=== PATIENT | male | born 1985 | race Caucasian/White ===

== ENCOUNTER 2017-07-29 12:12 | Emergency (ER) | payer OTHER ==
[~2017-07-29] VITALS: Ht 167.6 cm; Wt 79.4 kg
[2017-07-29] MEDS ORDERED: Augmentin 875-1 EACH PO (13:30)
[2017-07-29] MEDS ORDERED: Ultram50 MG PO (13:30)
== END 2017-07-29 13:56 | disposition home or self-care (01) ==
LOC: ER 12:12
DX: S02.2XXA Fracture of nasal bones, initial encounter for closed fracture (principal); S01.21XA Laceration without foreign body of nose, initial encounter; S00.83XA Contusion of other part of head, initial encounter; S05.11XA Contusion of eyeball and orbital tissues, right eye, initial encounter; K04.7 Periapical abscess without sinus; Z23 Encounter for immunization; Z79.2 Long term (current) use of antibiotics; Y04.2XXA Assault by strike against or bumped into by another person, initial encounter
CPT/HCPCS: 12011; 70486; 90471; 90714; 99284

== ENCOUNTER 2022-02-25 11:08 | Emergency (ER) | payer SELFPAY ==
[~2022-02-25] VITALS: Ht 175.3 cm; Wt 74.8 kg
[~2022-02-25 11:08] MED LIST: Augmentin 875-1 EACH PO; Ultram50 MG PO
[2022-02-25] MEDS ORDERED: OXYC5 PO (14:42)
== END 2022-02-25 14:58 | disposition home or self-care (01) ==
LOC: ER 11:08
DX: S22.22XA Fracture of body of sternum, initial encounter for closed fracture (principal); S42.031A Displaced fracture of lateral end of right clavicle, initial encounter for closed fracture; F17.200 Nicotine dependence, unspecified, uncomplicated; Y93.39 Activity, other involving climbing, rappelling and jumping off
CPT/HCPCS: 71120; 73000; 73030; 99283-25; A9270

== ENCOUNTER 2022-12-22 09:25 | Emergency (ER) | payer OTHER ==
[~2022-12-22] VITALS: Ht 175.3 cm; Wt 78.0 kg
[~2022-12-22 09:25] MED LIST changes: +OXYC5 PO
[2022-12-22 11:04] LABS: U Cannabinoids Screen DETECTED
[2022-12-22 11:05] LABS: U Amphetamine Screen Not Detected; U Barbituate Screen Not Detected; U Benzodiazapine Screen DETECTED; U Buprenorphine Screen Not Detected; U Cocaine Screen Not Detected; U Methadone Screen Not Detected; U Methamphetamine Screen Not Detected; U Opiates Screen DETECTED; U Oxycodone Screen Not Detected; U Phencyclidine Screen Not Detected; U Propoxyphene Screen Not Detected
[2022-12-22 11:23] LABS: BASOPHILS ABSOLUTE AUTO 0.01 K/mm3 (0.00-0.23); BASOPHILS PERCENT AUTO 0 % (0-2); EOSINOPHILS ABSOLUTE AUTO 0.02 K/mm3 (0.00-0.68); EOSINOPHILS PERCENT AUTO 0 % (0-6); Hematocrit 38.5 % (37.0-53.0); Hemoglobin 14.3 g/dL (13.5-17.5); IMMATURE GRAN ABSOLUTE AUTO 0.01 K/mm3 (0.00-0.10); IMMATURE GRAN PERCENT AUTO 0 % (0-1); LYMPHOCYTES PERCENT AUTO 29 % (21-46); MONOCYTES ABSOLUTE AUTO 0.66 K/mm3 (0.16-1.47); MONOCYTES PERCENT AUTO 12 % (4-13); Mean Corpuscular HGB 35.2 pg (26.0-34.0); Mean Corpuscular HGB Conc 37.1 g/dL (31.5-36.5); Mean Corpuscular Volume 95 fL (80-100); Mean Platelet Volume 10.6 fL (9.1-12.4); NEUTROPHILS ABSOLUTE AUTO 3.16 K/mm3 (1.96-9.15); NEUTROPHILS PERCENT AUTO 58 % (41-73); Platelet Count 236 K/mm3 (150-400); RDW Coefficient Variation 10.4 % (11.7-14.2); RDW Standard Deviation 35.8 fL (35.1-46.3); Red Blood Cell Count 4.06 M/mm3 (4.30-5.90); White Blood Cell Count 5.46 K/mm3 (4.00-11.30)
[2022-12-22 11:57] LABS: Albumin, Blood 3.5 g/dL (3.4-5.0); Bilirubin, Total 0.5 mg/dL (0.1-1.0); Bun/Creatinine Ratio 14.4 (12.0-20.0); Creatinine, Blood 0.62 mg/dL (0.60-1.20); Globulin, Blood 3.5 g/dL (2.2-4.0)
[2022-12-22] MEDS ORDERED: HYDPAM50 PO (13:28)
[2022-12-22 13:37] VITALS: BP 114/65
== END 2022-12-22 13:57 | disposition home or self-care (01) ==
LOC: ER 09:25
PROVIDERS: Physician Assistant
DX: R41.82 Altered mental status, unspecified (principal); G47.00 Insomnia, unspecified; G40.909 Epilepsy, unspecified, not intractable, without status epilepticus; F17.200 Nicotine dependence, unspecified, uncomplicated
CPT/HCPCS: 70450; 80053; 83735; 85025; 99285-25; G0480

== ENCOUNTER 2023-01-03 08:11 | Inpatient (IN) | payer BC, OTHER ==
[~2023-01-03] VITALS: Ht 175.3 cm; Wt 77.2 kg
[2023-01-03] VITALS (23 sets, daily range): BP systolic 69–153; BP diastolic 28–103
[~2023-01-03 08:11] MED LIST changes: +HYDPAM50 PO
[2023-01-03 15:03] LABS: BASOPHILS ABSOLUTE AUTO 0.03 K/mm3 (0.00-0.23); BASOPHILS PERCENT AUTO 0 % (0-2); EOSINOPHILS ABSOLUTE AUTO 0.01 K/mm3 (0.00-0.68); EOSINOPHILS PERCENT AUTO 0 % (0-6); Hematocrit 42.9 % (37.0-53.0); Hemoglobin 16.1 g/dL (13.5-17.5); IMMATURE GRAN ABSOLUTE AUTO 0.11 K/mm3 (0.00-0.10); IMMATURE GRAN PERCENT AUTO 1 % (0-1); LYMPHOCYTES ABSOLUTE AUTO 0.97 K/mm3 (0.84-5.20); LYMPHOCYTES PERCENT AUTO 4 % (21-46); MONOCYTES ABSOLUTE AUTO 1.72 K/mm3 (0.16-1.47); MONOCYTES PERCENT AUTO 8 % (4-13); Mean Corpuscular HGB Conc 37.5 g/dL (31.5-36.5); Mean Corpuscular Volume 93 fL (80-100); Mean Platelet Volume 10.5 fL (9.1-12.4); NEUTROPHILS PERCENT AUTO 88 % (41-73); Platelet Count 258 K/mm3 (150-400); RDW Coefficient Variation 10.6 % (11.7-14.2); RDW Standard Deviation 35.8 fL (35.1-46.3); White Blood Cell Count 22.64 K/mm3 (4.00-11.30)
[2023-01-03] MEDS ORDERED: ACET500 PO (15:18)
[2023-01-03] MEDS ORDERED: HYDPAM50 PO (15:29)
[2023-01-03 15:30] LABS: Prothrombin Time Results 10.5 Sec (9.7-11.5)
[2023-01-03 15:59] LABS: Alanine Aminotransfer (ALT/SGP 899 U/L (12-78); Albumin, Blood 2.8 g/dL (3.4-5.0); Albumin/Globulin Ratio 0.8 (0.8-1.8); Alk Phos 69 U/L (50-136); Anion Gap 11 mmol/L (6-16); Bilirubin, Total 0.5 mg/dL (0.1-1.0); Blood Urea Nitrogen 55 mg/dL (8-24); Bun/Creatinine Ratio 11.7 (12.0-20.0); CO2, Blood 19 mmol/L (21-32); Chloride, Blood 95 mmol/L (98-108); Creatinine, Blood 4.71 mg/dL (0.60-1.20); Globulin, Blood 3.5 g/dL (2.2-4.0); Glomerular Filtration Rate 15 (60-); Glucose, Blood 131 mg/dL (70-99); Potassium, Blood 6.7 mmol/L (3.5-5.5); Sodium, Blood 125 mmol/L (136-145); Total Protein, Blood 6.3 g/dL (6.4-8.2)
--- NOTE | 2023-01-03 16:07 | NUR ---
L CALF MEASURED & SPOT MARKED. 38cm.
[2023-01-03 17:16] LABS: Aspartate Aminotrans (AST/SGOT 3080 U/L (12-37)
--- NOTE | 2023-01-03 20:33 | NUR ---
SHIFT SUMMARY PAIN BETTER CONTROLLED THAN INITIALLY POST OP. L FOOT HAS SLIGHTLY MORE SWELLING. PLACED ON PILLOW. R LEG HAS SOME SS DRNG THRU GAUZE. STILL CAN WIGGLE ONLY R GREAT TOE. CONT's TO NOT FEEL BLE. HANDS UNCHANGED IN COLOR. TELE IN PLACE NSR. IVF INFUSING TO POWERGLIDE RUE. TAKING IN PO FLUIDS & ONLY FEW BITES OF FOOD.
[2023-01-04] VITALS (63 sets, daily range): BP systolic 131–148; BP diastolic 82–101
[2023-01-04 01:35] LABS: BASOPHILS ABSOLUTE AUTO 0.03 K/mm3 (0.00-0.23); BASOPHILS PERCENT AUTO 0 % (0-2); EOSINOPHILS ABSOLUTE AUTO 0.01 K/mm3 (0.00-0.68); EOSINOPHILS PERCENT AUTO 0 % (0-6); Hematocrit 39.2 % (37.0-53.0); Hemoglobin 14.4 g/dL (13.5-17.5); IMMATURE GRAN PERCENT AUTO 1 % (0-1); LYMPHOCYTES ABSOLUTE AUTO 0.79 K/mm3 (0.84-5.20); LYMPHOCYTES PERCENT AUTO 4 % (21-46); MONOCYTES ABSOLUTE AUTO 2.65 K/mm3 (0.16-1.47); MONOCYTES PERCENT AUTO 13 % (4-13); Mean Corpuscular HGB Conc 36.7 g/dL (31.5-36.5); Mean Corpuscular Volume 95 fL (80-100); Mean Platelet Volume 10.8 fL (9.1-12.4); NEUTROPHILS ABSOLUTE AUTO 16.55 K/mm3 (1.96-9.15); NEUTROPHILS PERCENT AUTO 82 % (41-73); Platelet Count 227 K/mm3 (150-400); RDW Coefficient Variation 10.6 % (11.7-14.2); RDW Standard Deviation 37.2 fL (35.1-46.3); Red Blood Cell Count 4.11 M/mm3 (4.30-5.90); White Blood Cell Count 20.13 K/mm3 (4.00-11.30)
--- NOTE | 2023-01-04 03:05 | NUR ---
I CALLED DR POOL AND DISCUSSED LAB RESULTS INCLUSIVE OF NA,K, CREATININE/GFR,AST.ALT,CK,CRP,AND GENERAL ASSESSMENT OF PT. ORDERED IV INSULIN/D50 AND FOLLOW UP LABS @.
[2023-01-04 03:28] LABS: Alanine Aminotransfer (ALT/SGP 708 U/L (12-78); Albumin, Blood 2.5 g/dL (3.4-5.0); Albumin/Globulin Ratio 0.7 (0.8-1.8); Alk Phos 63 U/L (50-136); Anion Gap 11 mmol/L (6-16); Aspartate Aminotrans (AST/SGOT 2467 U/L (12-37); Bilirubin, Total 0.5 mg/dL (0.1-1.0); Blood Urea Nitrogen 64 mg/dL (8-24); CO2, Blood 21 mmol/L (21-32); Calcium, Blood 7.1 mg/dL (8.5-10.1); Chloride, Blood 93 mmol/L (98-108); Creatinine, Blood 5.81 mg/dL (0.60-1.20); Globulin, Blood 3.4 g/dL (2.2-4.0); Glomerular Filtration Rate 12 (60-); Glucose, Blood 149 mg/dL (70-99); Potassium, Blood 6.3 mmol/L (3.5-5.5); Sodium, Blood 125 mmol/L (136-145); Total Protein, Blood 5.9 g/dL (6.4-8.2)
--- NOTE | 2023-01-04 03:45 | NUR ---
RECEIVED POTASSIUM RESULTS AT 0305.OTHER LABS STILL PENDING. ONCE AVAILABLE, I CALLED DR WILKS WITH CURRENT ASESSMENT OF PT AND REVIEWED ALL RECENT LABS. DOCTOR ORDERED ANOTHER 10 UNIT DOSE OF REG INSULIN IV AND TO GIVE 2 AMPS 100 ML D50.DOSE WAS CONFIRMED PER MYSELF AND [facility]. ALSO INCREASED IV RATE TO 250 ML/HR.
--- NOTE | 2023-01-04 04:14 | NUR ---
DR ORDERED NEPHROLOGY CX WHICH I PLACED ON DR DMOINGUEZ CARD.
--- NOTE | 2023-01-04 05:19 | NUR ---
PTS LLE REMAINS 37-38 CM PER MEASURE.RLE APPEARS OCAMPO AT GUAZE DRESSING SITE.RLE CONTINUES TO DRAIN SERO-SANG COURTNEY PT REPORTS CAN FEEL TOUCH L FOOT NOW ALTHOUGH STILL TINGLING.PT REPORTS R FOOT NOW HAS SOME RETURN OF SENSATION NOTED WHEN PULSE CHECK. PT ABLE TO SLOWLY WIGGLE TOES ON BOTH FEET WTH R BEING SLOWER.BOTH FEET WERE REPORTED NUMB ON INITIAL ASSESSMENT PER DAY RN THIS WAS SAME ARRIVAL POSTOP.PT IS ABLE TO CAREFULLY MOVE BOTH LEGS. BILAT POST TIBIAL PULSES REMAIN STRONG AND UNCHANGED WHILE BILAT PEDAL REMAIN WEAK WHICH IS ALSO REPORTED SAME BASELINE.PTS HEART RATE HAS BEEN SINUS ALESSIO 40'-50'S. CALL OUT TO DR GRIFFITH REGARDING INCREASE IN FULLNESS FASCIOTOMY SITE.DR MONTALVO CALLED AND GAVE ORDERS FOR BLADDER SCAN AND RENAL PANEL.
--- NOTE | 2023-01-04 05:45 | NUR ---
PHONE CALL TO DR GRIFFITH ADVISING OF ASSESSMENT/FULLNESS INCREASING TO RLE SEE ORDER RECEIVED.BLADDER SCAN COMPLETED 32 ML.
--- NOTE | 2023-01-04 05:48 | NUR ---
CALL FROM AIRCRAFT LOG CLERK-PT REPORTED SOB AND WAS INITIALLY UNABLE TO OBTAIN SATS. RAPID RESPONSE CALLED PER ORTHOTIC/PROSTHETIC PRACTITIONER. I WAS ABLE TO OBTAIN A 98% SAT WITH CHANGE OF HOSPITAL EQUIPMENT AND RAPID REPONSE WAS ARRIVING PT CHANGED MIND STATING HE WAS UNSURE, BUT THINKS IT WAS NAUSEA,NOT REALLY SOB.NO CHANGE OF ORDERS PER TELEGRAPH REPEATER INSTALLER.DR WILKS HERE FOR TELEGRAPH REPEATER INSTALLER WITH NO CHANGE OF ORDERS. NURSING SUPER AT BEDSIDE AWARE OF STATUS.
[2023-01-04 06:27] LABS: Albumin, Blood 2.4 g/dL (3.4-5.0); Anion Gap 11 mmol/L (6-16); Blood Urea Nitrogen 65 mg/dL (8-24); Bun/Creatinine Ratio 10.7 (12.0-20.0); CO2, Blood 20 mmol/L (21-32); Calcium, Blood 6.8 mg/dL (8.5-10.1); Chloride, Blood 94 mmol/L (98-108); Creatinine, Blood 6.09 mg/dL (0.60-1.20); Glomerular Filtration Rate 11 (60-); Glucose, Blood 214 mg/dL (70-99); Phosphorus, Blood 7.8 mg/dL (2.5-4.9); Potassium, Blood 5.5 mmol/L (3.5-5.5); Sodium, Blood 125 mmol/L (136-145)
--- NOTE | 2023-01-04 07:23 | NUR ---
CALLED RENAL PANEL RESULTS TO DR MONTALVO RECEIVED ORDERS FOR CHANGE OF IV AND LABS AT NOON.
[2023-01-04 09:21] LABS: BASOPHILS ABSOLUTE AUTO 0.01 K/mm3 (0.00-0.23); BASOPHILS PERCENT AUTO 0 % (0-2); EOSINOPHILS PERCENT AUTO 0 % (0-6); Hematocrit 36.4 % (37.0-53.0); Hemoglobin 13.6 g/dL (13.5-17.5); IMMATURE GRAN ABSOLUTE AUTO 0.11 K/mm3 (0.00-0.10); IMMATURE GRAN PERCENT AUTO 1 % (0-1); LYMPHOCYTES ABSOLUTE AUTO 0.95 K/mm3 (0.84-5.20); LYMPHOCYTES PERCENT AUTO 4 % (21-46); MONOCYTES PERCENT AUTO 17 % (4-13); Mean Corpuscular HGB 35.1 pg (26.0-34.0); Mean Corpuscular HGB Conc 37.4 g/dL (31.5-36.5); Mean Corpuscular Volume 94 fL (80-100); Mean Platelet Volume 10.5 fL (9.1-12.4); NEUTROPHILS ABSOLUTE AUTO 16.92 K/mm3 (1.96-9.15); NEUTROPHILS PERCENT AUTO 78 % (41-73); Platelet Count 219 K/mm3 (150-400); RDW Coefficient Variation 10.6 % (11.7-14.2); RDW Standard Deviation 36.2 fL (35.1-46.3); Red Blood Cell Count 3.87 M/mm3 (4.30-5.90); White Blood Cell Count 21.59 K/mm3 (4.00-11.30)
--- NOTE | 2023-01-04 09:36 | NUR ---
SUMMARY DRESSING SPLIT DOWN MIDDLE AND SURGICAL AREA LOOKS CLEAN WITH SERO-SANG DRNG. SKIN PINK AND WARM WITH NO DISCOLORATION NOTED TO SURROUNDING TISSUE.
[2023-01-04 09:57] LABS: BASOPHILS PERCENT MAN 0 % (0-2); EOSINOPHILS PERCENT MAN 0 % (0-6); LYMPHOCYTES ABSOLUTE MAN 0.86 K/mm3 (0.84-5.20); LYMPHOCYTES PERCENT MAN 4 % (21-46); MONOCYTES ABSOLUTE MAN 2.37 K/mm3 (0.16-1.47); MONOCYTES PERCENT MAN 11 % (4-13); NEUTROPHILS ABSOLUTE MAN 18.35 K/mm3 (1.96-9.15); SEG NEUTROPHILS PERCENT MAN 85 % (41-73); TOTAL CELLS COUNTED 100
[2023-01-04 10:20] LABS: Alanine Aminotransfer (ALT/SGP 563 U/L (12-78); Albumin, Blood 2.5 g/dL (3.4-5.0); Albumin/Globulin Ratio 0.8 (0.8-1.8); Alk Phos 62 U/L (50-136); Anion Gap 11 mmol/L (6-16); Bilirubin, Total 0.5 mg/dL (0.1-1.0); Blood Urea Nitrogen 69 mg/dL (8-24); Bun/Creatinine Ratio 10.6 (12.0-20.0); CO2, Blood 20 mmol/L (21-32); Calcium, Blood 7.1 mg/dL (8.5-10.1); Chloride, Blood 94 mmol/L (98-108); Creatinine, Blood 6.48 mg/dL (0.60-1.20); Globulin, Blood 3.3 g/dL (2.2-4.0); Glomerular Filtration Rate 10 (60-); Glucose, Blood 131 mg/dL (70-99); Sodium, Blood 125 mmol/L (136-145); Total Protein, Blood 5.8 g/dL (6.4-8.2)
[2023-01-04 10:24] LABS: Aspartate Aminotrans (AST/SGOT 1925 U/L (12-37); Potassium, Blood 6.3 mmol/L (3.5-5.5)
--- NOTE | 2023-01-04 10:25 | NUR ---
PT TRANSFERED TO ICU 8 FROM SURGICAL FLOOR AT 1008. COMING TO ICU PCU STATUS. PT IS A/O X4. DIFFICULT TO GET ANSWERS FROM PT. C/O OF NAUSEA AND HAS PAIN IN R LEG. SURGICAL FLOOR RN AT BEDSIDE WITH TRANSFER STATES LEGS AND FEET APPEAR THE SAME POST OP. L FOOT IS DUSKY AND L CALF IS SWOLLEN. L FOOT UNABLE TO PALPATE DORSALIS PULSE BUT ABLE TO GET DOPPLER. POSTERIOR TIBIAL PULSE ON L IS PALPABLE. CAP REFILL 3 SECONDS. R FOOT CAP REFILL LESS THAN 3 SEC, PALPABLE DORSALIS AND POSTERIOR TIBIAL PULSES, AND FOOT IS PINK AND WARM TO TOUCH. SPOKE WITH DR. RAMIREZ ABOUT GETTING ARTERIAL DUPLEX BILAT. INJECTION MOLDING MACHINE OFFBEARER HAD JUST REPLACED DRESSING TO R CALF AND STATES THEY HAVE NOT BEEN MEASURING THAT CALF D/T DRESSING ON SITE WOULD MAKE INCONSISTANT MEASURMENTS. L CALF WAS REPORTED TO BE BETWEEN 37-38 CM. L CALF WAS MEASURED AT 38 CM BY THIS RN.
--- NOTE | 2023-01-04 11:34 | NUR ---
REPORT CALLED AND PT TRANSFERRED TO ICU, PCU STATUS AT APPROXIMATELY 1100. PT ALERT AND ORIENTED AT TIME OF TRANSFER. EXAMINED BLE AT BEDSIDE WITH TERRANCE PACHECO.
--- NOTE | 2023-01-04 12:02 | NUR ---
PT DECLINES SAEZ AT THIS TIME.
--- NOTE | 2023-01-04 13:13 | NUR ---
DR. BOLAND ROUNDED ON PT TOOK DOWN DRESSING TO RIGHT LOWER LEG. HE IS CONCERNED THAT MUSCLE IS VERY FIRM AND DISTENDED ON BOTH SIDES OF CALF. PICTURES TAKEN. LEG RE-DRESSED WITH 4X4s, ABD PADS AND KERLEX WRAP. HE ALSO ASSESSED THE LEFT LEG AND WAS VERY CONCERNED ABOUT THE COLDNESS. DISCUSSED THE ARTERIAL DUPLEX DONE THIS MORNING. HE WILL CALL DR Rushing FOR AN EMERGENT CONSULT.
--- NOTE | 2023-01-04 13:45 | NUR ---
DR. BOLAND AND DR. GRIFFITH AT BEDSIDE TO EVAL R CALF. DRESSING TAKEN DOWN AGAIN AND EVAL'D BY DR. GRIFFITH. DRESSING WAS THEN REPLACED BY SURGEONS. MODERATE AMT OF SEROSANG FLUID ON PREVIOUS DRESSING. DR. GRIFFITH STATES LLE LOOKS THE SAME IF NOT BETTER THAN BEFORE. PLAN IS TO STILL HAVE DR. HERNANDEZ REVIEW THE CASE AND LE'S. MEASURMENTS AND PULSES THE SAME PREVIOUSLY DOCUMENTED BY THIS RN.
[2023-01-04 14:00] LABS: Albumin, Blood 2.2 g/dL (3.4-5.0); Anion Gap 9 mmol/L (6-16); Blood Urea Nitrogen 63 mg/dL (8-24); Bun/Creatinine Ratio 9.8 (12.0-20.0); CO2, Blood 23 mmol/L (21-32); Calcium, Blood 6.7 mg/dL (8.5-10.1); Chloride, Blood 94 mmol/L (98-108); Creatinine, Blood 6.43 mg/dL (0.60-1.20); Glomerular Filtration Rate 11 (60-); Glucose, Blood 110 mg/dL (70-99); Phosphorus, Blood 8.2 mg/dL (2.5-4.9); Potassium, Blood 5.5 mmol/L (3.5-5.5); Sodium, Blood 126 mmol/L (136-145)
--- NOTE | 2023-01-04 17:51 | NUR ---
SUMMARY PT RESTING IN BED. HAS BETTER PAIN CONTROL AFTER DILAUDID SAND BUFFER WAS STARTED. R CALF DRESSING CLEAN AND INTACT WHERE FASCIOTOMY WAS DONE. DR. GRIFFITH REDRESSED IT THIS AFTERNOON AFTER ASSESSING IT. NEW PICTURES TAKEN WHILE DRESSING WAS OFF. PT WAS IN EXTREME AMOUNT OF PAIN WITH DRESSING CHANGE. DR. HERNANDEZ WAS CONSULTED AND SAID HE WOULD SEE THE PT IN THE AM. DR. CAPPS WAS CONSULTED THIS EVENING FOR TRIALYSIS CATH PLACEMENT. DR. MONTALVO PLANS FOR DIALYSIS TONIGHT. PT IS NOT MAKING URINE, BLADDER SCAN SHOWS 18ML. L CALF CIRCUMFERENCE REMAINS SAME AT 38 CM. L FOOT IS STILL DUSKY WITH DOPPLER PULSE FOR DORSALIS. PALPABLE POSTERIOR TIBIAL PULSE. CAP REFILL FOR L FOOT 3 SEC. R FOOT IS WARM WITH PALPABLE PULSES.
--- NOTE | 2023-01-04 19:05 | NUR ---
Met with patient to have theraputic conversation and to assess pain and symptoms. Pt having some ringing in his ears no headache. States his breathing is ok. He is having some gerd and hiccups no nasea. HI leg are painfull expecially the left ankle feels strong preassure. Review of potential adjuct medication with nursing. She will ask physician once they have afirm plan of care. Will continue to follow. Asked patient if he has support from friends and family he stated ye she was texting them. Did not press him for more information. He is high risk for seizures. If he has surgery may benefit from some time on the ventlator due to the severe pain and intense recovery. We discussed his fears he stated he has had many broken bones and injuries. Will follow for prison plan of care.
--- NOTE | 2023-01-04 21:17 | NUR ---
ASSUMPTION OF CARE/ASSESSMENT: ASSUMED CARE OF PT AT 1900. PT IN BED RECIEVING URGENT DIALYSIS AT THIS TIME. PT A&O X 4, COOPERATIVE WITH CARE BUT QUIET AND APPEARS TIRED. PT CURRENTLY ON RA WITH CLEAR LUNG SOUNDS THROUGHOUT; SPO2 98<, RR 14-16, AND PT DENIES SOB AT THIS TIME. SB ON MONITOR WITH HR 47-50'S, SBP 140'S AND PT DENIES CHEST PAIN/PRESSURE AT THIS TIME. HYPOACTIVE BOWEL SOUNDS IN ALL QUADRANTS; ABD SOFT, NON-TENDER. PT OLIGURIA AND REQUIRING DIALYSIS. PT STATUS POST-OP DAY ONE FROM R. CALF FASCIOTOMY; DRESSING IN PLACE IS SATURATED AND WILL NEED TO BE CHANGED ONCE DIALYSIS IS COMPLETE. R. LEG PAIN IS OFF THE SCALE PER PT REPORT; PT ABLE TO WIGGLE TOES ON R. FOOT BUT CANNOT FEEL TOUCH TO R. FOOT, TOUCH FELT ABOVE KNEE ON R. LEG. R. FOOT PULSE HEARD WITH DOPPLER AND CAP REFILL 3 SECONDS<; PINK IN COLOR AND WARM. LLE SWOLLEN AND VERY PAINFUL TO TOUCH; COLOR IS DUSKY AND COOL, CAP REFIL 3 SECONDS<. PT ABLE TO WIGGLE TOES ON L. FOOT AND CAN FEEL TOUCH THROUGHOUT ENTIRE LEG; CALF MEASUREMENT AT 37 CM. PT HAS DILAUDID IN HOME CAREGIVER FOR PAIN MANAGEMENT. BUE PULSE PALPABLE AND STRONG; ALL OTHER SKIN IS PINK AND WARM. PT HAD RIJ TRIALYSIS CATHETER AND DEREJE PG. PT RECIEVING SODIUM BICARB @ 100 MLS/HR. BED LOWERED, CALL LIGHT IN REACH, WILL CONTINUE TO ASSESS FOR FURTHER NEEDS.
[2023-01-05] VITALS (63 sets, daily range): BP systolic 116–158; BP diastolic 72–98
--- NOTE | 2023-01-05 00:03 | NUR ---
REASSESSMENT: PREVIOUS ASSESSMENT OF BLE REMAINS UNCHANGED. L. CALF CONTINUES TO MEASURE AT 37 CM. PT STATES THAT PAIN IS SLIGHTLY BETTER IN L. LEG. DRESSING CHANGE COMPLETED TO R. CALF: WOUND CLEANSED WITH STERILE WATER AND WOUND CLEANSER AND BANDAGED WITH STERILE 4X4 GUAZE THAT HAS BEEN SATURATED WITH STERILE WATER AND REINFORCED WITH ABD PADS AND WRAPED WITH KERLEX. PT MEDICATED WITH ATIVAN PER EMAR PRIOR TO DRESSING CHANGE. PT TOLERATED WELL. BED LOWERED, CALL LIGHT IN REACH.
--- NOTE | 2023-01-05 03:56 | NUR ---
REASSESSMENT: BLE ASSESSMENT REMAINS UNCHANGED; L. CALF MEASURING AT 36.5 CM. PT STATES THAT PAIN IN L. LEG HAS IMPROVED SLIGHTLY SINCE LAST ASSESSMENT. DRESSING IS SATURATED AGAIN, WILL PLAN TO CHANGE DRESSING AGAIN. TEMPERATURE COMING DOWN TO 98.8. BED LOWERED, CALL LIGHT IN REACH.
[2023-01-05 04:14] LABS: Hemoglobin 11.2 g/dL (13.5-17.5)
[2023-01-05 04:15] LABS: Anion Gap 9 mmol/L (6-16); Blood Urea Nitrogen 46 mg/dL (8-24); Bun/Creatinine Ratio 8.3 (12.0-20.0); CO2, Blood 28 mmol/L (21-32); Calcium, Blood 6.7 mg/dL (8.5-10.1); Chloride, Blood 93 mmol/L (98-108); Creatinine, Blood 5.56 mg/dL (0.60-1.20); Glomerular Filtration Rate 13 (60-); Glucose, Blood 103 mg/dL (70-99); Potassium, Blood 4.1 mmol/L (3.5-5.5); Sodium, Blood 130 mmol/L (136-145)
--- NOTE | 2023-01-05 06:33 | NUR ---
SHIFT SUMMARY: NO ACUTE CHANGES OVERNIGHT; VSS THROUGHOUT THE SHIFT. R. CALF DRESSING CHANGES TWICE THIS SHIFT. SENSATION SLOWLY RETURNING IN R. CALF/FOOT, AND SKIN REMAINS PINK AND WARM TO TOUCG. L. CALF MEASURING AT 36.5 CM AND PAIN IS SLOWLY IMPROVING; TEMPERATURE IMPROVING. PT ABLE TO MOVE TOES BILATERALLY. DILAUDID SURVEILLANCE CAMERA TECHNICIAN PER EMAR; PT STATES THAT IS IT HELPING WITH PAIN MANAGEMENT. PT DECLINES TURNS AND STATES THAT LAYING FLAT IS BEST AND HIS IS WORRIED ABOUT PUTTING MORE PRESSURE ON LEGS WHEN TURNED. PT NPO SINCE MIDNIGHT FOR POSSIBLE PROCEDURE. PT SLEPT ON AND OFF THROUGHOUT THE NIGHT. BED LOWERED, CALL LIGHT IN REACH.
--- NOTE | 2023-01-05 09:46 | NUR ---
PT IN BED. A/O X4. PAIN WAS NOT WELL CONTROLLED WITH TUBE COVERER. HAS 10/10 PAIN IN R LEG THEN ALSO HAS GENERALIZED ACHING T/O BODY. PT STATES HE CAN FEEL EVERY SITE ON HIS BODY THAT HAS BEEN POKED WITH A NEEDLE SINCE HE HAS BEEN HERE. PT STATES THIS IS NEW SINCE YESTERDAY. CALLED DR. BOJORQUEZ WHO INCREASED TUBE COVERER DOSE. PT IS ABLE TO FEEL TOUCHING OF HIS TOES. L CALF MEASURES 39 CM, MEASURED AT SAME MARKINGS YESTERDAY. L ANKLE AND FOOT APPEAR MORE SWOLLEN THAN YESTERDAY. L DORSALIS PULSE FOUND WITH DOPPLER UNCHANGED FROM YESTERDAY. L FOOT STILL APPEARS DUSKY BUT CAP REFILL AT 3 SECONDS. RLE HAS DRESSING IN PLACE WHERE FASCIOTOMY WAS DONE. R FOOT IS WARM AND PINK WITH DOPPLER DORSALIS PULSE. CAP REFILL IS AT 3 SECONDS. DENIES NAUSEA. PLAN FOR DIALYSIS AGAIN THIS AM.
--- NOTE | 2023-01-05 11:26 | NUR ---
DR. BOLAND IN TO SEE PT. TOOK DRESSING DOWN ON R LEG. ANY MOVEMENT IS EXTREMELY PAINFUL FOR PT. PT BECOMES DIAPHORETIC AND TREMBLES WITH PAIN. UPDATED DR. BOLAND WITH PULSE, MEASUREMENTS, AND CAP REFILL ASSESSMENTS FOR TODAY. PLANNING TO TAKE PT TO OR TO OPEN SKIN MORE TO MAKE ROOM FOR SWOLLEN MUSCLE. DR. BOLAND REDRESSED R LEG WITH 4X4 GAUZE, ABD PADS, THEN SECURED WITH OLIVIA WRAP. DR. BOLAND WRAPPED L LEG WITH OLIVIA WRAP WELL AND PLACED ON PILLOW ABOVE HEART LEVEL. DR. BOLAND STATES L LEG APPEARS BETTER THAN YESTERDAY AND IT IS NOT PAINFUL YESTERDAY WELL. PT USING VOCATIONAL TEACHER AND HAS BETTER PAIN RELIEF AFTER DOSE INCREASE.
--- NOTE | 2023-01-05 12:35 | NUR ---
PT TAKEN TO OR ACCOMPANIED BY ACCOUNT EXECUTIVE'S.
--- NOTE | 2023-01-05 13:20 | NUR ---
01/05/23 1320 Tiffanie Allred PT ON SCHEDULED ANITBIOTICS
--- NOTE | 2023-01-05 19:00 | NUR ---
SUMMARY PT A/O X4. HAS PAIN IN R LEG. HEALTH PHYSICIST DOSE INCREASED THIS AM. EXTRA 1MG IVP FOR DRESSING CHANGE THIS EVENING AND AFTER PT CAME BACK FROM OR. ALSO GAVE DOSE OF ATIVAN THIS EVENING BEFORE LINEN CHANGE. WENT TO OR TO OPEN SKIN AROUND FASCIOTOMY TO GIVE TISSUE MORE ROOM IT IS VERY SWOLLEN. L LEG WAS WRAPPED WITH OLIVIA BANDAGE BY DR. BOLAND THIS AM AND ORDERED TO KEEP IT ABOVE HEART LEVEL. SWELLING IN L LEG HAS IMPROVED. DRESSING TO R LEG WAS SATURATED THIS EVENING, DR. BOLAND TO BEDSIDE AND ORDERED TO REINFORCE DRESSING WITH ABD PADS AND OLIVIA BANDAGE FOR TONIGHT. DR. BOLAND ASPIRATED FLUID FROM BOTH KNEES AND SENT SAMPLES. BLOOD CULTURES ORDERED WELL. PT GOT DIALYSIS RIGHT AFTER RETURN FROM OR AND 2L WERE REMOVED.
[2023-01-05 20:01] LABS: Glucose, Body Fluid 22 mg/dL; Glucose, Body Fluid 25 mg/dL; Protein, Body Fluid 1.9 g/dL; Protein, Body Fluid 2.3 g/dL
[2023-01-05 20:05] LABS: Body Fluid Crystals NEG (NEGATIVE)
[2023-01-05 20:06] LABS: Body Fluid Crystals NEG (NEGATIVE)
[2023-01-05 20:07] LABS: WBC Count, Synovial Fluid 1018 /mm3 (0-180)
[2023-01-05 20:14] LABS: BODY FLUID RBC 0.038 M/mm3 (0-0)
[2023-01-05 20:20] LABS: RBC Count, Synovial Fluid 38000 /mm3 (0-0); WBC Count, Synovial Fluid 1229 /mm3 (0-180)
[2023-01-05 20:25] LABS: RBC Count, Synovial Fluid 488 /mm3 (0-0)
[2023-01-05 20:26] LABS: Appearance, Synovial Fluid Clear (Clear); Color, Synovial Fluid Yellow (None-P Yel)
[2023-01-05 21:12] LABS: Appearance, Synovial Fluid Hazy (Clear); Color, Synovial Fluid Red (None-P Yel)
[2023-01-05 21:15] LABS: Lymphs, Synovial Fluid 2 % (0-15); Monocytes/Macrophages, Synovia 41 % (0-65); Neutrophils, Synovial Fluid 57 % (0-24)
[2023-01-05 21:19] LABS: Lymphs, Synovial Fluid 3 % (0-15); Monocytes/Macrophages, Synovia 21 % (0-65); Neutrophils, Synovial Fluid 76 % (0-24)
--- NOTE | 2023-01-05 21:44 | NUR ---
ASSUMPTION OF CARE/ASSESSMENT: ASSUMED CARE OF PT AT 1900. PT A&O X 4, FOLLOWING DIRECTIONS AND APPEARS MORE AWAKE THAN LAST NIGHT. PT STATES THAT OVERALL PAIN MANAGEMENT IMPROVED AND PAIN IN L. LEG HAS IMPROVED GREATLTY. PEDAL PULSES ARE PALPABLE BILATERALLY AND CAP REFILL < 3 SECONDS BILATERALLY; SKIN WARM AND PINK IN BOTH LEGS. PT ABLE TO LIFT LEFT LEG AND BEND KNEE AND IS ABLE TO WIGGLE TOES BILATERALLY; TOUCH FELT IN BOTH FEET. PT REMAINS ON POST TENSIONING IRONWORKER HELPER PUMP PER EMAR. PT ON RA WITH CLEAR LUNG SOUND THROUGHOUT WITH NO C/O SOB AT THIS TIME; SPO2 98<. SR-ST ON MONITOR WITH HR 90-100 AND SBP 120-130'S. HYPERACTIVE BOWEL SOUNDS IN ALL QUADRANTS, ABD SOFT AND NON-TENDER, AND PT TOLERATING PO INTAKE. PT REMAINS OLIGURIA AND RECIEVING DIALYSIS. BED LOWERED, CALL LIGHT IN REACH.
[2023-01-06] VITALS (71 sets, daily range): BP systolic 116–147; BP diastolic 66–100
[2023-01-06 04:37] LABS: Hemoglobin 8.6 g/dL (13.5-17.5)
[2023-01-06 04:40] LABS: Albumin, Blood 2.1 g/dL (3.4-5.0); Anion Gap 9 mmol/L (6-16); Blood Urea Nitrogen 49 mg/dL (8-24); Bun/Creatinine Ratio 8.7 (12.0-20.0); CO2, Blood 26 mmol/L (21-32); Chloride, Blood 96 mmol/L (98-108); Creatinine, Blood 5.65 mg/dL (0.60-1.20); Glomerular Filtration Rate 12 (60-); Glucose, Blood 145 mg/dL (70-99); Magnesium, Blood 2.3 mg/dL (1.6-2.4); Phosphorus, Blood 7.6 mg/dL (2.5-4.9); Potassium, Blood 4.7 mmol/L (3.5-5.5); Sodium, Blood 131 mmol/L (136-145)
--- NOTE | 2023-01-06 06:37 | NUR ---
SHIFT SUMMARY: NO ACUTE CHANGES THIS SHIFT; VSS THROUGHOUT THE NIGHT. PT NOT ABLE TO SLEEP INTIL AROUND 0400. BLE ASSESSMENT REMAINS UNCHANGED TO PREVIOUS ASSESSMENT. R. LEG DRESSING REINFORCED WITH MORE ABD AND OLIVIA BANDAGE THIS MORNING AND LINENS CHANGED; PT MEDICATED WITH PRN ATIVAN FOR THIS AND TOLERATED WELL. PT STATES THAT WHEN HE IS LAYING IN BED AND LEFT ALONE PAIN IS AROUND 7-8/10 BUT WHEN REPOSITIONED OR ANY CARE DONE TO R. LEG PT STATES PAIN IS ABOVE A TEN. PT HAD GOOD PO INTAKE THIS SHIFT. BED LOWERED, CALL LIGHT IN REACH.
--- NOTE | 2023-01-06 18:31 | NUR ---
SUMMARY PT RESTING IN BED. A/O X4. HAS FREIGHT WEIGHER PUMP THAT IS WORKING WELL TO CONTROL PAIN TODAY. TOLERATING PO INTAKE. GOT DIALYSIS THIS AM. L LEG SWELLING HAS IMPROVED AND NOW HAS PALPABLE PULSES. CAP REFILL LESS THAN [address] BOLAND IN THIS EVENING AND ASSISTED WITH DRESSING CHANGE. R FOOT HAS PALPABLE PULSES TODAY, CAP REFILL LESS THAN 3 SECONDS, AND TOES ARE PINK AND WARM. PT TOLERATED DRESSING CHANGE BETTER TODAY BUT IS STILL EXTREMELY PAINFUL. PT CAN WIGGLE TOES SLOWLY ON BOTH SIDES. ALSO CAN BEND AT HIP WITH SOME ASSISTANCE. PT CAN HELP TURN HIMSELF IN BED AND PARTICIPATES WITH CARE.
--- NOTE | 2023-01-06 19:15 | NUR ---
ASSUMPTION OF CARE: RECEIVED REPORT FROM TERRANCE PACHECO. PT ALERT AND ORIENTED TO TIME,PERSON, PLACE AND SITUATION. CALM AND COOPERATIVE WITH ALL CARE. CONTINUOUS CARDIAC MONITORING IN PLACE, SINUS RHYTHM WITH HRR IN THE 80'S-90'S. NO C/O CHEST PAIN, PRESSURE OR SOB. ON ROOM AIR WITH SATS MAINTAINING >95%. LUNGS SOUNDS CLEAR IN ALL LOBES. OLIVIA WRAP WITH ABD PADS TO RIGHT LOWER EXTREMITY, DRAINING HEAVY AMOUNTS OF RED LIQUID. REINFORCED DRESSING WITH MORE ABD PADS. LEFT LEG HAS ABD PADS AND OLIVIA WRAP WELL, WITH NO DRAINAGE NOTED. STRONG. PALPABLE PULSES IN BILATERAL TIBIALS. SKIN PINK, WARM AND DRY. C/O PAIN IN RIGHT EXTREMITY WITH MOVEMENT. DILAUDID INTERNAL REVENUE SERVICE AGENT PUMP SET TO 0.6 MG DEMAND DOSE WITH NO CONTINUOUS RATE AND TEN MINUTE LOCKOUT. TRIALYSIS CATHETER IN RIGHT IJ, INFUSING CLINIMIX. POWERGLIDE TO RIGHT UPPER ARM, PATENT, CLEAN AND DRY. SEE SHIFT ASSESSMENT FOR FULL ASSESMENT.
[2023-01-07] VITALS (77 sets, daily range): BP systolic 103–1178; BP diastolic 62–111
[2023-01-07 03:59] LABS: Hemoglobin 6.1 g/dL (13.5-17.5)
[2023-01-07 04:00] LABS: Hematocrit 16.3 % (37.0-53.0)
[2023-01-07 04:27] LABS: Albumin, Blood 2.2 g/dL (3.4-5.0); Anion Gap 8 mmol/L (6-16); Blood Urea Nitrogen 47 mg/dL (8-24); Bun/Creatinine Ratio 8.9 (12.0-20.0); CO2, Blood 28 mmol/L (21-32); Calcium, Blood 7.1 mg/dL (8.5-10.1); Chloride, Blood 95 mmol/L (98-108); Creatinine, Blood 5.27 mg/dL (0.60-1.20); Glomerular Filtration Rate 13 (60-); Glucose, Blood 133 mg/dL (70-99); Magnesium, Blood 2.2 mg/dL (1.6-2.4); Phosphorus, Blood 6.8 mg/dL (2.5-4.9); Potassium, Blood 3.9 mmol/L (3.5-5.5); Sodium, Blood 131 mmol/L (136-145)
--- NOTE | 2023-01-07 05:40 | NUR ---
SHIFT SUMMARY: PT REMAINS ALERT AND ORIENTED TO TIME,PERSON,PLACE AND SITUATION T/O THE SHIFT. REMAINS ON ROOM AIR WITH NO C/O SOB. SPO2 >95%. CONTINUOUS CARDIAC MONITORING IN PLACE, SINUS TACH 100'S. SBP 120'S. STRONG PEDAL AND RADIAL PULSES BILATERALLY. CAP REFILL <3 SECONDS. PT CONTINUES TO HAVE HEAVY AMOUNTS OF BLOOD FROM RIGHT LEG. DRESSING CONTINUALLY REINFORCED T/O THE NIGHT. PER DR. WILKS PT GOING TO RECEIVE 1 UNIT PRBC'S FOR HGB 6.1, HCT 16.3. NO URINE OUTPUT T/O THE SHIFT. SMALL, INCONTINENT BROWN STOOL. DILAUDID PRICE CHANGER AT 0.6 MG Q10. CLINIMIX INFUSING THROUGH RIGHT IJ TRIALYSIS CATHETER. TKO INFUSING THROUGH RIGHT POWERGLIDE. WILL REPORT OFF TO DAY SHIFT RN.
--- NOTE | 2023-01-07 07:57 | NUR ---
PROVIDER CONTACT DR. BOLAND CONTACTED REGARDING THE BLEEDING FROM THE PT'S R LEG, DROP IN H&H, AND DIMINISHED R PEDAL PULSE. PROVIDER INSTRUCTING THIS RN TO REINFORCE THE DRESSING AND HE WILL BE IN LATER TODAY TO EVALUATE THE PT. FIG WASHER NOTIFIED OF CALL.
--- NOTE | 2023-01-07 09:30 | NUR ---
SEIZURE/VTACH APPROX 0920 WHILE RECIEVING DIALYSIS THE PT BEGAN HAVING A SEIZURE, THE PT THE WENT INTO VTACH WITH A PULSE. THE PT WAS GIVEN 2MG ATIVAN WHICH STOPPED THE SEIZURE ACTIVITY AND RETURNED THE PT'S HR BACK TO SR. BP LOW AT THIS TIME. DEBUG TECHNICIAN AT BEDISD EGIVING THE PT BACK THE VOLUME THAT WAS TAKEN OFF. DR. BOJORQUEZ NOTIFIED OF EVENT AND ORDERS PENDING.
--- NOTE | 2023-01-07 10:57 | NUR ---
DIALYSIS AFTER APPROXIMATELY 20 MIN INTO THE DIALYSIS TX, PT HAD A GRAND MAL SIEZURE. ALERTED STAFF,RINSED THE BLOOD BACK. CALLED DR MONTALVO, HE SAID TO [facility]. NOTIFIED HIS RN. GINNA PER PROTOCAL.
[2023-01-07 11:23] LABS: BASOPHILS ABSOLUTE AUTO 0.02 K/mm3 (0.00-0.23); BASOPHILS PERCENT AUTO 0 % (0-2); EOSINOPHILS ABSOLUTE AUTO 0.12 K/mm3 (0.00-0.68); EOSINOPHILS PERCENT AUTO 1 % (0-6); IMMATURE GRAN ABSOLUTE AUTO 0.65 K/mm3 (0.00-0.10); IMMATURE GRAN PERCENT AUTO 4 % (0-1); LYMPHOCYTES PERCENT AUTO 12 % (21-46); MONOCYTES ABSOLUTE AUTO 1.67 K/mm3 (0.16-1.47); MONOCYTES PERCENT AUTO 10 % (4-13); Mean Corpuscular HGB 32.6 pg (26.0-34.0); Mean Corpuscular HGB Conc 36.8 g/dL (31.5-36.5); Mean Corpuscular Volume 88 fL (80-100); Mean Platelet Volume 10.9 fL (9.1-12.4); NEUTROPHILS ABSOLUTE AUTO 11.97 K/mm3 (1.96-9.15); NEUTROPHILS PERCENT AUTO 73 % (41-73); Platelet Count 170 K/mm3 (150-400); RDW Coefficient Variation 13.8 % (11.7-14.2); RDW Standard Deviation 44.2 fL (35.1-46.3); Red Blood Cell Count 2.15 M/mm3 (4.30-5.90); White Blood Cell Count 16.43 K/mm3 (4.00-11.30)
[2023-01-07 11:32] LABS: International Normalized Ratio 1.1; Prothrombin Time Results 11.5 Sec (9.7-11.5)
[2023-01-07 11:44] LABS: Albumin, Blood 2.6 g/dL (3.4-5.0); Albumin/Globulin Ratio 1.5 (0.8-1.8); Bilirubin, Direct 0.3 mg/dL (0.0-0.3); Bilirubin, Indirect 0.9 mg/dL (0.1-0.7); Bilirubin, Total 1.2 mg/dL (0.1-1.0); Bun/Creatinine Ratio 9.5 (12.0-20.0); Calcium, Blood 7.5 mg/dL (8.5-10.1); Creatinine, Blood 4.54 mg/dL (0.60-1.20); Globulin, Blood 1.7 g/dL (2.2-4.0); Potassium, Blood 3.8 mmol/L (3.5-5.5); Total Protein, Blood 4.3 g/dL (6.4-8.2)
[2023-01-07 15:56] LABS: Hemoglobin 6.2 g/dL (13.5-17.5)
[2023-01-07 16:16] LABS: Hematocrit 16.7 % (37.0-53.0)
--- NOTE | 2023-01-07 16:31 | NUR ---
Review of pt in rounds. Spent some therputic tiem with pt to fragile and painfull. Family engaged with physicians will follow up. No appropriate to intervene. Goal is transfer if they will accept. ptkps score is 30%.
--- NOTE | 2023-01-07 17:54 | NUR ---
DAY SHIFT SUMMARY THE PT HAS REMAINED ALERT AND ORIENTED THIS SHIFT DESPITE HAVING A SEIZURE THIS AM DURING DIALYSIS, SEE PREVIOUS NOTES FOR DETAILS. PT WAS UNABLE TO RECIEVE DIALYSIS TODAY DUE TO SEIZURE AND BECOMING VERY UNSTABLE W INITIATING OF HIS DIALYSIS. PT HAS NOT SHOWN ANY POST-ICTAL SYMPTOMS SINCE HIS SEIZURE. DR. BOLAND CALLED TO BEDSIDE THIS AM DUE TO BLEEDING FROM RLE, PROVIDER PERFORMING CAUTERIZATION AT THE BEDSIDE RESOLVING THE PT'S BLEEDING. THE PT'S BP HAS REMAINED WNL AND STABLE THIS SHIFT. PT BEGAN SHIFT W MONITOR SHOWING ST 100'S-110'S BUT AFTER RECIEVING THE SECOND UNIT OF BLOOD HE HAS BEEN SR 80'S W NO ECTOPY. PT HAS BEEN AFEBRILE THIS SHIFT. PT RECIEVING 3RD UNIT OF PRBC'S THIS SHIFT AFTER REPEAT H&H SHOWED HGB <7.0. PT STILL HAS DILUADID MANUFACTURING PRODUCTION TECHNICIAN W DEMAND DOSE PER EMAR, PT HAS APPEARED COMFORTABLE THIS SHIFT WHEN HE IS AT REST. PT STILL NOT PRODUCING ANY URINE THIS SHIFT. PT HAD 2 LOOSE BM'S THIS SHIFT. PT HAS HAD GOOD PO INTAKE OF FLUIDS BUT HIS APPETTITE FOR FOOD REMAINS VERY POOR. CLINIMIX RUNNING AT 50ML/HR ALL SHIFT. PT'S FAMILY AT BEDSIDE FOR MOST OF THE DAY. WILL REPORT TO ONCOMING RN.
--- NOTE | 2023-01-07 19:59 | NUR ---
ASSUMPTION OF CARE: RECEIVED REPORT FROM JAKE PACHECO. PT ALERT AND ORIENTED TO PERSON, PLACE, TIME AND SITUATION. CALM AND COOPERATIVE WITH CARE. CONTINUOUS CARDIAC MONITORING IN PLACE, SINUS RHYTHM, RATE IN THE 80'S. PT DENIES CHEST PAIN, PRESSURE OR SOB. LUNG SOUNDS CLEAR T/O ALL LOBES, SPO2 >95% ON RA. DRESSING IN PLACE OVER RIGHT LOWER LEG WITH SMALL AMOUNTS OF SANGINOUS DRAINAGE. DRESSING TO LEFT LOWER LEG WITH NO NOTABLE DRAINAGE. PEDAL PULSES PALPABLE ON BOTH FEET. FAINT ON THE RIGHT, STRONG ON THE LEFT. DENIES PAIN IN LEGS, STATES HE HAS MILD TINGLING IN THE FEET, ABLE TO WIGGLE HIS TOES AND HAS GOOD SENSATION IN BOTH FEET. PT STILL UNABLE TO VOID. THIRD UNIT OF BLOOD DONE TRANFUSING AT 1900 WITH ORDERS FOR A REPEAT H&H AT 2100. RIGHT IJ TRIALYSIS CATHETER CURRENTLY INFUSING CLINIMIX, DILAUDID DIXONAC OPERATOR AND TKO. RIGHT UPPER ARM POWERGLIDE CURRENTLY SALINE LOCKED, FLUSHES WELL AND DRAWS BACK BLOOD. SEE SHIFT ASSESSMENT FOR FULL ASSESSMENT.
[2023-01-07 21:29] LABS: Hematocrit 18.7 % (37.0-53.0)
[2023-01-08] VITALS (84 sets, daily range): BP systolic 116–145; BP diastolic 65–91
[2023-01-08 04:00] LABS: Hematocrit 21.4 % (37.0-53.0); Hemoglobin 7.8 g/dL (13.5-17.5)
[2023-01-08 04:30] LABS: Albumin, Blood 2.1 g/dL (3.4-5.0); Anion Gap 9 mmol/L (6-16); Blood Urea Nitrogen 61 mg/dL (8-24); CO2, Blood 25 mmol/L (21-32); Calcium, Blood 7.1 mg/dL (8.5-10.1); Chloride, Blood 95 mmol/L (98-108); Creatinine, Blood 6.08 mg/dL (0.60-1.20); Glomerular Filtration Rate 11 (60-); Glucose, Blood 110 mg/dL (70-99); Magnesium, Blood 2.1 mg/dL (1.6-2.4); Phosphorus, Blood 7.4 mg/dL (2.5-4.9); Potassium, Blood 4.3 mmol/L (3.5-5.5); Sodium, Blood 129 mmol/L (136-145)
--- NOTE | 2023-01-08 05:51 | NUR ---
SHIFT SUMMARY: NO ACUTE EVENTS T/O THE SHIFT. PT CONTINUES TO REMAIN ALERT AND ORIENTED TO TIME, PERSON, PLACE AND SITUATION. CARDIAC MONITORING IN PLACE, SINUS RHTHYM WITH HR IN THE 80'S. LUNG SOUNDS CLEAR IN UPPERS, DIM IN BASES. SPO2 >95% ON RA. PT STILL UNABLE TO VOID. LARGE LOOSE BROWN BM IN BEDPAN. PT RECEIVED ANOTHER UNIT OF PRBC PER DR. HEALY. HGB NOW AT 7.8. WOUND TO RIGHT LOWER LEG CONTINUES TO PUT OUT MODERATE AMOUNTS OF RED DRAINAGE. POWERGLIDE TO RIGHT UPPER ARM, SALINE LOCKED AT THIS TIME. RIGHT IJ TRIALYSIS CATH, INFUSING CLINIMIX, DILAUDID REGISTRATION REPRESENTATIVE AND TKO. PT ABLE TO REPOSITION IN THE BED AND MAKE NEEDS KNOWN T/O THE SHIFT. WILL REPORT TO ANNA PACHECO.
--- NOTE | 2023-01-08 09:54 | NUR ---
SHIFT ASSESSMENT ASSUMED CARE OF PT @ 0700. PT ALERT AND ORIENTED, FOLLOWING COMMANDS. RESTING IN BED, PAIN CURRENTLY CONTROLLED WITH ABRASIVE WORKER DILAUDID. DRESSING TO RLE WITH SEROSANGUINOUS DRAINAGE, AWAITING REASSESSMENT FROM ORTHO. PT C/O MILD TINGLING TO BLE BUT MOTION AND SENSATION INTACT. PALPABLE PEDAL PULSES. PT TOLERATING PO INTAKE WELL, NO BM THIS SHIFT. NOT VOIDING, RECEIVING DIALYSIS AT THIS TIME. CLINIMIX INFUSING VIA CL. WILL MONITOR CLOSELY.
[2023-01-08 12:06] LABS: Hematocrit 19.9 % (37.0-53.0); Hemoglobin 7.4 g/dL (13.5-17.5)
--- NOTE | 2023-01-08 18:03 | NUR ---
SHIFT SUMMARY PT REMAINS A&OX4, FOLLOWING COMMANDS, [place] BUT VERY WEAK IN RLE, ABLE TO ASSIST WITH TURNS. VSS. RLE CONTINUES TO OOZE SEROSANGUINEOUS FLUID THROUGH DRESSING, LINENS AROUND WOUND CHANGED MULTIPLE TIMES. PLANS FOR DRESSING CHANGE TOMORROW WITH DR BOLAND. PT C/O PAIN IN RLE BUT TOLERABLE WITH FARM EQUIPMENT MECHANIC. PALPABLE PULSE TO BLE. 2L OFF WITH DIALYSIS TODAY. PT TOLERATING PO INTAKE, 1-SMALL LOOSE BM TODAY, 100ML URINE OUT. NO OTHER ACUTE CHANGES TODAY.
--- NOTE | 2023-01-08 19:15 | NUR ---
ASSUMPTION OF CARE: RECEIVED REPORT FROM VENTURA PACHECO. PT ALERT AND ORIENTED TO PERSON, PLACE, TIME AND SITUATION. ABLE TO MAKE NEEDS KNOWN AND COOPERATIVE WITH ALL CARE. MEDICAL STATUS AT THIS TIME. CONTINUOUS CARDIAC MONITORING IN PLACE WITH HR 90'S IN SINUS RHYTHM, DENIES CHEST PAIN, PRESSURE OR SOB. ON RA WITH SPO2 > 95%. RIGHT LOWER LEG CONTINUES TO HAVE MODERATE AMOUNT OF SANGINOUS DRAINAGE. LEFT LOWER LEG HAS OLIVIA WRAP WITH NO DRAINAGE NOTED AT THIS TIME. PEDAL PULSES PRESENT AND PALPABLE. HAS NOT VOIDED YET. NO BM. ABLE TO REPOSITION IN BED AND SHIFT HIPS WITH MINIMAL ASSISTANCE. RIGHT IJ TRIALYSIS CATH INFUSING CLINIMIX, DILAUDID PROGRAM MEDICAL DIRECTOR AND TKO. POWERGLIDE IN DEREJE SALINE LOCKED, CLEAN AND DRY.
[2023-01-08 20:49] LABS: Hematocrit 18.6 % (37.0-53.0); Hemoglobin 6.9 g/dL (13.5-17.5)
--- NOTE | 2023-01-08 21:15 | NUR ---
CALL TO DOC: CALLED PLACE TO [facility] REGARDING PT HGB 6.9. ORDERS TO TRANSFUSE 1 UNIT PRBC. WITH REPEAT H&H 30 MINUTES AFTER COMPLETION. PT REMAINS STABLE WITH HR 90'S, SBP 130'S. NO C/O CHEST PAIN, PRESSURE OR SOB.
[2023-01-09] VITALS (25 sets, daily range): BP systolic 114–149; BP diastolic 64–89
--- NOTE | 2023-01-09 01:02 | NUR ---
TRANSFER NOTE/ASSUMPTION OF CARE PT TRANSFERRED TO PCU. BEDSIDE REPORT TAKEN FROM STEPHANIE PACHECO. PT A&O X4. ABLE TO MAKE NEEDS KNOWN. INFUSING 1 UNIT PRBC'S AT THIS TIME. PROVIDER WITH ORDER TO RECHECK H/H AFTER 30MINUTES OF INFUSION FINISHING. RLE DRESSING WITH MOD SANGUINOUS DRAINAGE, CHANGED PAD UNDER LEG. DILAUDID INTERNET ASSESSOR CONTROLLER WITH PATIENT. SR ON MONITOR WITH HR 70-80'S. BP STABLE. DENIES CHEST PAIN/PRESSURE, SOB, OR DIZZINESS. ON RA WITH SPO2 >92%. FAINT RIGHT PEDAL PULSE PALPATED. BED IN LOWEST POSITION AND CALL LIGHT WITHIN REACH.
[2023-01-09 02:07] LABS: Hematocrit 21.7 % (37.0-53.0); Hemoglobin 7.9 g/dL (13.5-17.5)
[2023-01-09 04:47] LABS: Hematocrit 21.4 % (37.0-53.0); Hemoglobin 7.7 g/dL (13.5-17.5)
[2023-01-09 05:02] LABS: Albumin, Blood 2.2 g/dL (3.4-5.0); Anion Gap 9 mmol/L (6-16); Blood Urea Nitrogen 62 mg/dL (8-24); Bun/Creatinine Ratio 10.4 (12.0-20.0); CO2, Blood 26 mmol/L (21-32); Calcium, Blood 7.5 mg/dL (8.5-10.1); Chloride, Blood 94 mmol/L (98-108); Creatinine, Blood 5.99 mg/dL (0.60-1.20); Glomerular Filtration Rate 11 (60-); Glucose, Blood 115 mg/dL (70-99); Phosphorus, Blood 6.4 mg/dL (2.5-4.9); Potassium, Blood 4.4 mmol/L (3.5-5.5); Sodium, Blood 129 mmol/L (136-145)
--- NOTE | 2023-01-09 05:23 | NUR ---
SHIFT SUMMARY PATIENT REPORTED INCREASED PAIN THAT FELT "TIGHT" AND "THROBBING". PEDAL PULSES VERY FAINT, USED DOPPLER TO VERIFY PEDAL PULSES IN BOTH FEET. FEET WARM AND PINK. <3 SECOND CAP REFILL. PT REPORTS THAT THE PAIN APPEARED TO BE SUBSIDING AND SUGGESTED TO THIS RN THAT "IT WAS PROBABLY DUE TO ALL THE MOVING TO THE NEW ROOM". THIS RN CHANGED OUT PADS UNDER RLE, NOTING CORTEZ/RED/BROWN DRAINAGE. CLINIMIX, TKO, AND DILAUDID PATIENT CARE INFUSING PER EMAR INTO RIJ; DRESSING C/D/I. MEDICATING PER EMAR FOR ANXIETY. BED IN LOWEST POSITION AND CALL LIGHT WITHIN REACH. THIS RN WILL REPORT TO ONCOMING RN
--- NOTE | 2023-01-09 08:30 | NUR ---
0800 Pt was seen by at the bedside. Dressing change done by the surgeon. Pt is awake, very painful after the dressing change. Verified pedal pulses bilaterally with doppler. There is pedal swelling bilaterally, and significant swelling of the RLE from knee to toes. Capilary refill is brisk bialterally on toes. Pt is using his [employer]LE [employer] pump. After dressing changes, pt was repositioned to the left side and assessment completed. Taken to dialysis.
--- NOTE | 2023-01-09 11:30 | NUR ---
Pt brought back from dialysis to PCU 19. Declines his breakfast at this time, drinking Gatorade and said he might eat some breakfast.
[2023-01-09 16:33] LABS: Hematocrit 21.4 % (37.0-53.0); Hemoglobin 7.7 g/dL (13.5-17.5)
--- NOTE | 2023-01-09 17:52 | NUR ---
Spiritual Care Consult ordered by Dr. Mix Pt. is in bed dealing with visceral pain from his recent surgery. Family are present and welcome me visit. Facilitate a life review mostly with family. Pt. displayed evidence of awareness but also dispondance. Pt. verbalized that he was going to help fight to get better. Prayed for Pt. Pt. displayed evidence of reluctant acceptance to prayer but also respect for the care that was being offered. As I finshed Dr. Escalona arrived and spoke directly with Pt. and family. Spiritual Care will remain avilable.
--- NOTE | 2023-01-09 17:54 | NUR ---
END OF SHIFT NOTE PT A&OX4 THIS SHIFT. PT ABLE TO MAKE NEEDS KNOWN TO STAFF. COMPLIANT WITH CARE. HR MOSTLY 90'S-100'S, BP STABLE. PT DENIES CP/PRESSURE. SPO2 >95% ON RA, DENIES SOB. DIALYSIS THIS AM, PERMACATH PLACED THIS PM FOR DIALYSIS. PT TOLERATED WELL W/O COMPLAINTS. PT REPORTS INTENSE PAIN THIS SHIFT, MANAGED PER EMAR WITH DILAUDID CANNONEER AND PO OXYCODONE. ATIVAN ADMINISTERED PER EMAR FOR ANXIETY. PADS UNDERNEATH RLE CHANGED FREQUENTLY T/O SHIFT, MODERATE AMOUNT OF SANGUINOUS DRAINAGE NOTED. PT REPOSITIONED FREQUENTLY WITH PILLOWS. FAMILY AT BEDSIDE, SPIRITUAL CARE CONSULT THIS PM. CALL LIGHT WITHIN REACH, NO FURTHER NEEDS AT THIS TIME. WILL REPORT TO ONCROSEMARY ARIZA RN.
[2023-01-10] VITALS (26 sets, daily range): BP systolic 55–143; BP diastolic 37–84
--- NOTE | 2023-01-10 04:33 | NUR ---
SHIFT SUMMARY PT A&O X4, ABLE TO MAKE NEEDS KNOWN. PT MEDICATED FOR PAIN Q4HRS WITH PO MEDS. PT CONTINUES TO HAVE SUPERINTENDENT TERMINAL DILAUDID. PT VERBALIZED CONTINUED POOR PAIN CONTROL. RATING PAIN 8-10/10 THROUGHOUT THIS SHIFT. PT ASSISTED WITH REPOSITIONING IN BED. RLE WITH HEAVY SANGUINOUS DRAINAGE; CHANGED PADS UNDERNEATH LEGS X3 DURING THIS SHIFT. BP STABLE. SR/ST WITH HR 90-100'S. AFEBRILE. ON RA WITH SPO2 >92%. BED IN LOWEST POSITION AND CALL LIGHT WITHIN REACH. THIS RN WILL REPORT TO ONCOMING DAYSHIFT RN.
[2023-01-10 04:44] LABS: Hematocrit 21.3 % (37.0-53.0); Hemoglobin 7.6 g/dL (13.5-17.5)
[2023-01-10 05:05] LABS: Albumin, Blood 2.3 g/dL (3.4-5.0); Albumin/Globulin Ratio 1.2 (0.8-1.8); Bilirubin, Total 1.3 mg/dL (0.1-1.0); Bun/Creatinine Ratio 9.5 (12.0-20.0); Calcium, Blood 7.8 mg/dL (8.5-10.1); Creatinine, Blood 5.47 mg/dL (0.60-1.20); Phosphorus, Blood 5.5 mg/dL (2.5-4.9); Potassium, Blood 4.5 mmol/L (3.5-5.5); Total Protein, Blood 4.3 g/dL (6.4-8.2)
--- NOTE | 2023-01-10 07:37 | NUR ---
PT UPDATE UPON INITIAL ASSESSMENT, 2 CHUX PADS UNDER RLE NOTED TO HAVE LARGE AMOUNT OF SANGUINOUS DRAINAGE. OLIVIA BANDAGE SATURATED WITH BLOOD, DRIED BLOOD AND ACTIVE BLOODY DRAINAGE NOTED ON RIGHT UPPER THIGH. PHOTOS TAKEN, TEXTED TO DR. BOLAND. NOTIFIED PT WILL BE GOING TO DIALYSIS AT 0830.
--- NOTE | 2023-01-10 08:16 | NUR ---
Dickey back from Dr. Francis regarding concerns for bleeding from RLE. Plans to change the dressing by the doctor later today, after dialysis.
--- NOTE | 2023-01-10 08:33 | NUR ---
Pt taken to dialysis.
--- NOTE | 2023-01-10 11:08 | NUR ---
Spiritual Care follow up is declined. Pt. verbalized to a PCU nurse his desire to suspend Spiritual Care at this time. Will remain available to Pt. but will respect his verbalized wishes.
[2023-01-10 12:12] LABS: HBSAG SCREEN Negative (Negative); HCV AB Reactive (Non Reactive); HCV LOG10 6.017 (.); HEP A AB, IGM Negative (Negative); HEP B CORE AB, IGM Negative (Negative); HEPATITIS C QUANTITATION 1040000 IU/mL (.)
--- NOTE | 2023-01-10 12:47 | NUR ---
Helped pt to use the bedpan. He had a large liquid brown stool. STates he does not remember how long he has been having liquid stools. He had one yesterday also. Declined lunch.
--- NOTE | 2023-01-10 13:44 | NUR ---
PT UPDATE SIGNIFICANT ACTIVE BLEEDING NOTED FROM THE PROXIMAL PORTION OF THE RIGHT LOWER LEG. PADDING HAS BEEN CHANGED THREE TIMES SINCE 729. CALL PLACED TO DR. BOJORQUEZ, ORDERS FOR UPDATED H&H RECEIVED.
--- NOTE | 2023-01-10 14:48 | NUR ---
Large amount of blood pooling in the chux pad. Both Dr. Francis and Dr. Mix have been notified, and H&H was drawn, results pending.
[2023-01-10 14:51] LABS: Hematocrit 14.6 % (37.0-53.0); Hemoglobin 5.3 g/dL (13.5-17.5)
--- NOTE | 2023-01-10 15:02 | NUR ---
PT UPDATE H&H RESULTS RECEIVED FROM LAB WITH HGB 5.3 AND HCT 14.6. CALL PLACED TO DR. BOJORQUEZ, ORDERS RECEIVED FOR 2U PRBC'S WITH REPEAT H&H 2HRS AFTER THE 2ND UNIT IS COMPLETE.
--- NOTE | 2023-01-10 17:59 | NUR ---
END OF SHIFT NOTE PT A&OX4 T/O SHIFT, WITHDRAWN DEMEANOR. ABLE TO CALL APPROPRIATELY AND MAKE NEEDS KNOWN TO STAFF. PT COOPERATIVE WITH MOST CARE, DECLINED SOME Q2 TURNS BY STAFF. PT WITH DECLINE IN BP DURING DIALYSIS WITH RIGID ARMS AND VERBAL UNRESPONSIVENESS PER QUALITY INSPECTOR. BP STABILIZED AND KEPPRA ADMINISTERED PER EMAR. HR SR/ST, MOSTLY 110'S. PT DENIES CP/PRESSURE. SPO2 >95% ON RA, DENIES SOB. TEMPORAL TEMP UP TO 101.2, BLANKETS REMOVED. ORAL TEMP TAKEN FREQUENTLY AND REMAINS <100.0. SEE PREVIOUS NOTES REGARDING H&H AND RLE BLEEDING, DR. BOLAND TO BEDSIDE THIS PM TO PERFORM RLE CAUTERY AND CHANGE DRESSING. PAIN MANAGED WITH DILAUDID SCHOOL INSPECTOR AND PO OXYCODONE PER EMAR. 1 UNIT PRBC'S INFUSING, TYPE AND SCREEN AT 1830. 1 UNIT PRBC'S TO BE HUNG ON COMPLETION. CALL LIGHT WITHIN REACH, RLE ELEVATED. WILL REPORT TO ONCOMING NOC RN.
--- NOTE | 2023-01-10 20:34 | NUR ---
ASSUMPTION OF CARE THIS RN ASSUMED CARE OF PATIENT AT 1900. PT A&O X4. MEDICATED PER EMAR WITH 2ND BAG OF TXA. PT CURRENTLY INFUSING SECOND BAG OF PRBC'S. VITALS STABLE. LS CLEAR T/O. WILL F/U WITH REPEAT H/H PER ORDER. DRESSING ON RLE C/D/I. NO DRAINAGE NOTED AT THIS TIME. LEG ELEVATED ABOVE HEART. REPOSITIONING PATIENT Q2HRS. PT REPORTS PAIN AT 6/10. GIVEN PO PAIN MEDS PER EMAR. DILAUDID SERVICE ORDER TAKER. BED IN LOWEST POSITION AND CALL LIGHT WITHIN REACH.
[2023-01-11] VITALS (18 sets, daily range): BP systolic 122–157; BP diastolic 71–96
[2023-01-11 02:02] LABS: Albumin, Blood 2.3 g/dL (3.4-5.0); Albumin/Globulin Ratio 1.3 (0.8-1.8); Bilirubin, Direct 0.3 mg/dL (0.0-0.3); Bilirubin, Total 1.3 mg/dL (0.1-1.0); Bun/Creatinine Ratio 9.9 (12.0-20.0); Calcium, Blood 7.8 mg/dL (8.5-10.1); Creatinine, Blood 5.33 mg/dL (0.60-1.20); Globulin, Blood 1.8 g/dL (2.2-4.0); Hematocrit 19.6 % (37.0-53.0); Hemoglobin 6.9 g/dL (13.5-17.5); Magnesium, Blood 2.2 mg/dL (1.6-2.4); Phosphorus, Blood 6.3 mg/dL (2.5-4.9); Potassium, Blood 4.4 mmol/L (3.5-5.5); Total Protein, Blood 4.1 g/dL (6.4-8.2)
--- NOTE | 2023-01-11 05:49 | NUR ---
SHIFT SUMMARY PATIENT'S REPEAT HGB 6.9 AFTER 2 UNITS PRBC'S. CALL PLACED TO MD SOLO REGARDING HGB; ORDER FOR 1U PRBC'S WITH REPEAT H/H 1 HOUR AFTER TRANSFUSION FINISHED. OTHERWISE PT WITH IMPROVED PAIN DURING THIS SHIFT COMPARED TO PREVIOUS NOC SHIFT WITH THIS RN. PT APPEARED TO HAVE SLEPT MOST OF THE SHIFT. PT REFUSING TO BE REPOSITIONED THROUGH MOST OF THIS SHIFT. RLE DRESSING WITH MINIMAL DRAINAGE; ELEVATED ON PILLOWS. OTHER VITALS REMAIN STABLE. BED IN LOWEST POSITION AND CALL LIGHT WITHIN REACH. THIS RN WILL REPORT TO ONCOMING RN.
[2023-01-11 07:43] LABS: Hematocrit 21.5 % (37.0-53.0); Hemoglobin 7.7 g/dL (13.5-17.5)
--- NOTE | 2023-01-11 12:56 | NUR ---
PT UPDATE THIS RN CALLED TO ROOM BY FAMILY, PT REPORTS SIGNIFICANT INCREASE IN RLE PAIN. PT IN VISIBLE DISTRESS, CRYING AND MOANING. NO VISIBLE BLEEDING, MINIMAL FLUID DRAINAGE PRESENT ON RLE DRESSING. SWELLING REMAINS UNCHANGED IN THE RIGHT FOOT/TOES FROM THIS AM. CALL PLACED TO DR. RAMIREZ, ORDERS RECEIVED FOR 1X DOSE DILAUDID, SEE EMAR. DIALUDID ADMINISTERED PER ORDERS, PT REPORTS SIGNIFICANT IMPROVEMENT IN PAIN. VSS. DIALYSIS IN PROGRESS.
--- NOTE | 2023-01-11 18:24 | NUR ---
END OF SHIFT NOTE PT A&OX4 T/O SHIFT, AGREEABLE TO ALL CARE. ABLE TO CALL APPROPRIATELY AND MAKE NEEDS KNOWN TO STAFF. PT SR/ST, MOSTLY 80-100'S. DENIES CP/PRESSURE, BP STABLE. SPO2 >92% ON RA, DENIES SOB. DIALYSIS THIS AM, PT WITH SIGNIFICANT INCREASE IN PAIN WITH APPROX 30MIN REMAINING OF DIALYSIS. SEE PREVIOUS NOTE. PAIN MANAGED WITH OXYCODONE PO AND DILAUDID VIA HOT CAR CHARGER PER EMAR. PT REPOSITIONED T/O SHIFT. DR. GRIFFITH TO BEDSIDE THIS PM FOR DRESSING CHANGE, PT TOLERATED WELL. ABLE TO PRODUCE SMALL AMOUNT OF URINE, ONE SMALL SOFT BM THIS SHIFT. PT ABLE TO CONSUME SMALL AMOUNT OF DINNER THIS PM, 1000ML FLUID RESTRICTION IN PLACE. CALL LIGHT WITHIN REACH, WILL REPORT TO ONCROSEMARY ARIZA RN.
--- NOTE | 2023-01-11 22:10 | NUR ---
ASSUMED PT CARE FROM RN ON . PT A&OX4. ABLE TO ANSWER QUESTIONS AND MAKE NEEDS KNOWN. DENIES ANY SOB OR CHEST PAIN. O2 SATS > 92% ON RA. HR SR/ST IN 90-100'S. REPORTS SLIGHT NAUSEA, WILL MONITOR. AFEBRILE. PAIN 7/10 IN RIGHT LEG, REPORTS THIS IS TOLERABLE AT THIS TIME. CALL LIGHT IN REACH. BED IN LOW POSITION.
[2023-01-12] VITALS (17 sets, daily range): BP systolic 137–158; BP diastolic 64–106
[2023-01-12 05:43] LABS: Hematocrit 20.3 % (37.0-53.0); Hemoglobin 7.2 g/dL (13.5-17.5)
--- NOTE | 2023-01-12 06:01 | NUR ---
SHIFT SUMMARY: PT PAIN CONTINUES TO BE CONTROLED WITH DIFFICULTY. PT CONTINUES TO USE LOGGING TRUCK DRIVER PUMP AND PO PAIN MEDICATIONS FOR PAIN CONTROL. PT IS TEARFUL, CONCERNED THAT ABOUT HIS PAIN BECOMING UNCONTROLABLE DURING THE NIGHT. PT CONSOLED, MEDICATED FOR ANXIETY WITH GOOD RESULT. VITAL SIGNS REMAIN STABLE. CMS INTACT IN BLE, PEDAL PULSES FAINT BUT PALPABLE. PT ENCOURAGED TO REPOSITION SELF IN BED TO PREVENT FURTHER SKIN BREAKDOWN, ABLE TO MOVE SELF IN BED. CALL LIGHT IN REACH. BED IN LOW POSITION.
[2023-01-12 06:03] LABS: Albumin, Blood 2.3 g/dL (3.4-5.0); Anion Gap 7 mmol/L (6-16); Blood Urea Nitrogen 56 mg/dL (8-24); Bun/Creatinine Ratio 9.6 (12.0-20.0); CO2, Blood 30 mmol/L (21-32); Chloride, Blood 95 mmol/L (98-108); Creatinine, Blood 5.83 mg/dL (0.60-1.20); Glomerular Filtration Rate 12 (60-); Glucose, Blood 114 mg/dL (70-99); Magnesium, Blood 2.4 mg/dL (1.6-2.4); Phosphorus, Blood 6.2 mg/dL (2.5-4.9); Sodium, Blood 132 mmol/L (136-145)
--- NOTE | 2023-01-12 08:40 | NUR ---
Patients family came out of room and stating the patient did not get schheduled pain med and after research his meds are PRN and explained he has to ask and they will not awake him every 4 hours to give. He is alert and oriented and is able to communicate needs. He had some complaints of RN at night and addressed with CN. He has DRAWING CHECKER within reach and is tolerating well. Medicated per MAR for pain and took to dialysis. Was pulling 0900 meds to take to him. Set 4 hour timer to reassess for pain when meds can be given.
--- NOTE | 2023-01-12 08:45 | NUR ---
Called Dr Edge and stated family has been here early to see him on rounds and if he could come by and see patient. He came by and addressed all questions from family and i had him increased fluid restriction to 1500 daily as patient would like more fluids. He has 1-2+ edema to LLE and 1+ to RLE.
--- NOTE | 2023-01-12 12:10 | NUR ---
Patient is back from dialysis and aid brought lunch in and he stated as we were pushing him back he was having pain come back and went to pull pain meds per MAR and scheduled meds. Family at bedside.
--- NOTE | 2023-01-12 14:45 | NUR ---
RN/ DAY SHIFT SUMMARY RECIEVED BEDSIDE REPORT WITH THE NIGHT NURSE AND ASSUMED CARE WITH THE PATIENT. THE MORNING ASSESSMENT AND MEDICATIONS WERE PASSED WITH NO COMPLICATIONS. THE PATIENT WAS THEN TAKEN FOR MORNING DIALYSIS WITH NO COMPLICATIONS. THE PATIENT HAS BEEN VOCAL ABOUT BEING IN PAIN AND HAS ASKED ABOUT OXI MULTIPLE TIMES. THE WOUND HAS BEEN VISUALIZED AND THE DRESSING CHANGE AT 1400 TODAY, THERE WAS SIGNIFICANT DRAINAGE PRESENT BUT OTHERWISE LOOKED GOOD. THE PATIENT DEMONSTRATED SIGNIFICANT PAIN DURING THE PROCEDURE WITH THE SURGEON. WILL CONTINUE TO MONITOR.
[2023-01-13] VITALS (7 sets, daily range): BP systolic 122–163; BP diastolic 77–96
[2023-01-13 05:07] LABS: BASOPHILS ABSOLUTE AUTO 0.05 K/mm3 (0.00-0.23); BASOPHILS PERCENT AUTO 0 % (0-2); EOSINOPHILS ABSOLUTE AUTO 0.68 K/mm3 (0.00-0.68); EOSINOPHILS PERCENT AUTO 4 % (0-6); Hematocrit 19.9 % (37.0-53.0); Hemoglobin 6.8 g/dL (13.5-17.5); IMMATURE GRAN ABSOLUTE AUTO 0.86 K/mm3 (0.00-0.10); IMMATURE GRAN PERCENT AUTO 5 % (0-1); LYMPHOCYTES ABSOLUTE AUTO 2.46 K/mm3 (0.84-5.20); LYMPHOCYTES PERCENT AUTO 13 % (21-46); MONOCYTES ABSOLUTE AUTO 2.26 K/mm3 (0.16-1.47); MONOCYTES PERCENT AUTO 12 % (4-13); Mean Corpuscular HGB 30.8 pg (26.0-34.0); Mean Corpuscular HGB Conc 34.2 g/dL (31.5-36.5); Mean Corpuscular Volume 90 fL (80-100); Mean Platelet Volume 10.8 fL (9.1-12.4); NEUTROPHILS ABSOLUTE AUTO 12.13 K/mm3 (1.96-9.15); NEUTROPHILS PERCENT AUTO 66 % (41-73); Platelet Count 150 K/mm3 (150-400); RDW Coefficient Variation 18.5 % (11.7-14.2); RDW Standard Deviation 57.4 fL (35.1-46.3); Red Blood Cell Count 2.21 M/mm3 (4.30-5.90); White Blood Cell Count 18.44 K/mm3 (4.00-11.30)
[2023-01-13 05:27] LABS: Albumin, Blood 2.1 g/dL (3.4-5.0); Anion Gap 8 mmol/L (6-16); Blood Urea Nitrogen 54 mg/dL (8-24); Bun/Creatinine Ratio 10.2 (12.0-20.0); CO2, Blood 30 mmol/L (21-32); Calcium, Blood 7.8 mg/dL (8.5-10.1); Chloride, Blood 93 mmol/L (98-108); Glomerular Filtration Rate 13 (60-); Glucose, Blood 133 mg/dL (70-99); Magnesium, Blood 2.1 mg/dL (1.6-2.4); Phosphorus, Blood 5.1 mg/dL (2.5-4.9); Potassium, Blood 3.8 mmol/L (3.5-5.5); Sodium, Blood 131 mmol/L (136-145)
--- NOTE | 2023-01-13 06:19 | NUR ---
End of shift note. Pt has struggled with pain control this shift. PRN oxy was given as available, in addition to dilaudid ENGRAVER STEEL PLATE. Pt had some complaints of a headache mid shift which was treated with APAP with good effect. Dressing to RLE was taken down and reinforced this morning about 0500. Pt is able to make needs known, call light is within reach.
--- NOTE | 2023-01-13 17:55 | NUR ---
RN/ DAY SHIFT SUMMARY MORNING SHIFT REPORT RECIEVED DURING ASSUMPTION OF CARE AT THE BEDSIDE WITH THE NIGHT NURSE. THE PATIENT SEEMS TO BE IN UNCONTROLED PAIN INTERMITTENTLY THROUGHOUT THE DAY WITH HIS PERFORMING ARTIST REQUIRING ADJUSTMENT AROUND 1600 TODAY. THE ASSESSMENT WAS NOTED WITH NO COMPLICATIONS AT THE TIME OF ASSESSMENT. THE FASCIOTOMY HAS WELL DEFINED BORDERS WITH COPIOUS AMOUNTS OF SANGUINIOUS EXUDATE NOTED DURING DRESSING CHANGE. THE PATIENT RECIEVED MEDICATIONS WITH NO COMPLICATIONS. THERE WAS 1 UNIT OF PRBC GIVEN TODAY AT 1200 TODAY DUE TO A LOW HGB LAB READING. THE PATIENT WAS TRANSFUSED WITH NO COMPLICATIONS. THERE WAS AN EPISODE OF BREAKTHROUGH PAIN AND THE PATIENT SEEMED DISTRESSED BUT THEN RECIEVED LISSETT WHICH CONTROLED THE PAIN. THE PATIENT HAS BEEN PLEASANT AND COMPLIANT. WILL CONTINUE TO MONITOR UNTIL EVENING ASSUMPTION OF CARE WITH THE NIGHT NURSE.
[2023-01-14] VITALS (24 sets, daily range): BP systolic 111–163; BP diastolic 75–107
[2023-01-14 04:19] LABS: Hematocrit 22.4 % (37.0-53.0); Hemoglobin 7.8 g/dL (13.5-17.5)
[2023-01-14 04:38] LABS: Albumin, Blood 2.1 g/dL (3.4-5.0); Anion Gap 8 mmol/L (6-16); Blood Urea Nitrogen 78 mg/dL (8-24); Bun/Creatinine Ratio 11.2 (12.0-20.0); CO2, Blood 29 mmol/L (21-32); Chloride, Blood 92 mmol/L (98-108); Creatinine, Blood 6.98 mg/dL (0.60-1.20); Glomerular Filtration Rate 10 (60-); Glucose, Blood 112 mg/dL (70-99); Magnesium, Blood 2.2 mg/dL (1.6-2.4); Phosphorus, Blood 6.3 mg/dL (2.5-4.9); Potassium, Blood 4.5 mmol/L (3.5-5.5); Sodium, Blood 129 mmol/L (136-145)
--- NOTE | 2023-01-14 06:09 | NUR ---
Pt continues to struggle with pain control despite the increase in the CORN CUTTER OPERATOR rate change. Pt has received PO oxy Q4h overnight. Dressing was changed twice to RLE, dressing saturating with serosang drainage. Pt tolerated dressing change well. Pt is able to make needs known, call light is within reach.
[2023-01-14 09:41] LABS: BASOPHILS ABSOLUTE AUTO 0.04 K/mm3 (0.00-0.23); BASOPHILS PERCENT AUTO 0 % (0-2); EOSINOPHILS ABSOLUTE AUTO 0.27 K/mm3 (0.00-0.68); EOSINOPHILS PERCENT AUTO 1 % (0-6); Hematocrit 21.6 % (37.0-53.0); Hemoglobin 7.7 g/dL (13.5-17.5); IMMATURE GRAN ABSOLUTE AUTO 0.63 K/mm3 (0.00-0.10); IMMATURE GRAN PERCENT AUTO 3 % (0-1); LYMPHOCYTES ABSOLUTE AUTO 1.57 K/mm3 (0.84-5.20); LYMPHOCYTES PERCENT AUTO 8 % (21-46); MONOCYTES ABSOLUTE AUTO 2.02 K/mm3 (0.16-1.47); MONOCYTES PERCENT AUTO 10 % (4-13); Mean Corpuscular HGB 31.8 pg (26.0-34.0); Mean Corpuscular HGB Conc 35.6 g/dL (31.5-36.5); Mean Corpuscular Volume 89 fL (80-100); Mean Platelet Volume 10.9 fL (9.1-12.4); NEUTROPHILS ABSOLUTE AUTO 15.65 K/mm3 (1.96-9.15); NEUTROPHILS PERCENT AUTO 78 % (41-73); Platelet Count 152 K/mm3 (150-400); RDW Standard Deviation 54.9 fL (35.1-46.3); Red Blood Cell Count 2.42 M/mm3 (4.30-5.90); White Blood Cell Count 20.18 K/mm3 (4.00-11.30)
--- NOTE | 2023-01-14 11:19 | NUR ---
RN/ DAY SHIFT SUMMARY MORNING REPORT RECIEVED PRIOR TO ASSUMPTION OF CARE AT THE BEDSIDE WITH THE NIGHT NURSE. THE PATIENT WAS ASSESSED WITH VERBAL COMUNICATIONS REGUARDING HIS PAIN MANAGEMENT AND THE FEELING THAT THERE IS BREAKDOWN IN THE COMMUNICATIONS BETWEEN THE NURSING STAFF AND THE PROVIDERS BUT NO OTHER COMPLICATIONS WERE NOTED. THE PATIENTS RIGHT LEG WAS VISUALIZED WITH DRESSING, THE DRESSING DID NOT HAVE EVIDENCE OF MODERATE EXUDATE. THE PATIENT HAS RECIEVED HIS MEDICATIONS WITH THE ANTIBIOTIC BEING HELD DUE TO DIALYSIS. DIALYSIS WAS COMPLETED AND THE PATIENT IS PREPARING TO FOR SURGERY THIS AFTERNOON AND HAS BEEN NPO PAST MIDNIGHT. VITALS ASSESSMENT WAS COMPETED WITH NO COMPLICATIONS.
[2023-01-15] VITALS (21 sets, daily range): BP systolic 125–143; BP diastolic 72–104
[2023-01-15 04:23] LABS: BASOPHILS ABSOLUTE AUTO 0.02 K/mm3 (0.00-0.23); BASOPHILS PERCENT AUTO 0 % (0-2); EOSINOPHILS ABSOLUTE AUTO 0.01 K/mm3 (0.00-0.68); EOSINOPHILS PERCENT AUTO 0 % (0-6); IMMATURE GRAN ABSOLUTE AUTO 0.37 K/mm3 (0.00-0.10); IMMATURE GRAN PERCENT AUTO 2 % (0-1); LYMPHOCYTES ABSOLUTE AUTO 0.78 K/mm3 (0.84-5.20); LYMPHOCYTES PERCENT AUTO 5 % (21-46); MONOCYTES ABSOLUTE AUTO 0.99 K/mm3 (0.16-1.47); MONOCYTES PERCENT AUTO 6 % (4-13); Mean Corpuscular HGB 32.4 pg (26.0-34.0); Mean Corpuscular HGB Conc 35.4 g/dL (31.5-36.5); Mean Corpuscular Volume 92 fL (80-100); Mean Platelet Volume 11.2 fL (9.1-12.4); NEUTROPHILS ABSOLUTE AUTO 15.31 K/mm3 (1.96-9.15); NEUTROPHILS PERCENT AUTO 88 % (41-73); Platelet Count 172 K/mm3 (150-400); RDW Coefficient Variation 18.5 % (11.7-14.2); RDW Standard Deviation 60.9 fL (35.1-46.3); Red Blood Cell Count 1.79 M/mm3 (4.30-5.90); White Blood Cell Count 17.48 K/mm3 (4.00-11.30)
[2023-01-15 04:50] LABS: Hematocrit 16.4 % (37.0-53.0); Hemoglobin 5.8 g/dL (13.5-17.5)
[2023-01-15 05:18] LABS: Magnesium, Blood 2.3 mg/dL (1.6-2.4)
[2023-01-15 05:48] LABS: Albumin, Blood 2.7 g/dL (3.4-5.0); Anion Gap 8 mmol/L (6-16); Blood Urea Nitrogen 87 mg/dL (8-24); Bun/Creatinine Ratio 12.5 (12.0-20.0); CO2, Blood 28 mmol/L (21-32); Calcium, Blood 8.4 mg/dL (8.5-10.1); Chloride, Blood 93 mmol/L (98-108); Creatinine, Blood 6.94 mg/dL (0.60-1.20); Glomerular Filtration Rate 10 (60-); Glucose, Blood 175 mg/dL (70-99); Phosphorus, Blood 5.2 mg/dL (2.5-4.9); Potassium, Blood 5.2 mmol/L (3.5-5.5); Sodium, Blood 129 mmol/L (136-145)
--- NOTE | 2023-01-15 06:26 | NUR ---
SHIFT SUMMARY PATIENT ALERT AND ORIENTED X4. BEDREST DUE TO R LEG WOUNDS. WOUND VAC IN PLACE AND DRAINING, APPROXIMATELY 600 ML OUT SO FAR. PATIENT STILL VERY PAINFUL WITH NEARLY CONSTANT 10/10 PAIN, MEDICATED PER EMAR. PATIENT ON ROOM AIR. VITAL SIGNS STABLE. NO NEW ISSUES NOTED OVERNIGHT. WILL CONTINUE TO MONITOR. CALL LIGHT WITHIN REACH.
--- NOTE | 2023-01-15 10:10 | NUR ---
01/15/23 1010 Sherin Liang VERIFICATIONS: EDIT CHART.
--- NOTE | 2023-01-15 12:11 | NUR ---
Call recieved from dialysis team. Pt and his father were expressing stress about plan of care. Had atheraputic visit with patient and his father. pt states starting to do better with his food tolerance and intake. Will review his pain needs. Better control but still having exacerbations. Review of family needs with father.got him to express some of his fatigue at getting so much information. He has to go back to [place] and he is trying to arrange family to rotate through so he has more support. He father expressed stress at getting to [place]. Carmelita set their flight to [place].He states they do not have family here. Asked if being near [place] would be easier. He will go anywhere but yes thinks that will facilitate flights better. Discussed this option with daycare manager. Pt high risk for readmission and complications. May be better served in a larger community aand facilitating families travel plans. Gave father our card and advised hime of our services and support.
[2023-01-15 12:22] LABS: Albumin, Blood 2.8 g/dL (3.4-5.0); Albumin/Globulin Ratio 1.1 (0.8-1.8); Bilirubin, Total 0.7 mg/dL (0.1-1.0); Calcium, Blood 7.8 mg/dL (8.5-10.1); Creatinine, Blood 2.75 mg/dL (0.60-1.20); Globulin, Blood 2.6 g/dL (2.2-4.0); Potassium, Blood 3.3 mmol/L (3.5-5.5); Total Protein, Blood 5.4 g/dL (6.4-8.2)
--- NOTE | 2023-01-15 13:11 | NUR ---
PT HAD DIALYSIS THIS AM, TOLERATED WELL. PT HAS CONTINUED TO NEED MEDICATED PER EMAR TO MANAGE PAIN. HE IS NPO FOR IMAGING THIS AFTERNOON. PT UNDERSTANDS HE CAN EAT LUNCH AFTER IMAGE. WAITING ON BLOOD ADMINISTRATION DUE TO NEEDING BLOOD FROM BLOOD CENTER BECAUSE OF PATIENT ANTIBODIES. SCD ON LEFT LE TO DECREASE SWELLING. PT STATES NO FURTHER NEEDS AT THIS TIME
--- NOTE | 2023-01-15 15:46 | NUR ---
PATIENT'S LEFT FOOT IS EDEMINOUS. SCD'S APPLIED AND REASSESSED SEVERAL HOURS LATER. FOOT IS STILL EDEMINOUS 3+ AND LOWER CALF IS 1+. PT CLAIMS THE SCD IS HELPING WITH THE DISCOMFORT FROM SWELLING AND WANTS TO CONTINUE TO WEAR IT. PT EDUCATED ON NEED TO MOVE ANKLE AND PUMP FEET TO INCREASE MOBILITY AND IMPROVE CIRCULATION.
--- NOTE | 2023-01-15 16:03 | NUR ---
Spiritual care visit conducted. Patient is lying in bed and alert. He immediately tells me about his upcoming amputation. We discuss his mental/emotional health as we explore his coping skills and resources. He shares about his acceptance of the realities and his approach to deal with each aspect as it comes. He explains about his support system. He admits to having a place to recover if need be. We discuss the anticipatory grief of the loss of the below the knee of his leg and the bright sides of still being alive and being able to recover and still find meaning and fulfillment in life. I reinforce helpful attitudes and perspectives and provide therapeutic listening and gentle veterans' counselor. Patient responded well and showed signs of increased peace. I will continue to remain available to patient and family.
--- NOTE | 2023-01-15 20:52 | NUR ---
CARE ASSUMPTION this rn assumed care at 1900. vital signs stable. surgical status no tele. patient is alert and oriented x4. perrla. patient reports pain in bilateral lower extremities and receied pain med per emar. see pain assessment. patient reports no chest pain/pressure or shortness of breath. patient lung sounds are clear. see shift assessment for further detials. patient is currently receiving first unit of blood, no adverse reactions. plan is for right BKA tomorrow. npo at midnight. friends at bedside. call light witin reach and bed in lowest position.
[2023-01-15 20:53] LABS: Hematocrit 16.2 % (37.0-53.0); Hemoglobin 5.5 g/dL (13.5-17.5)
[2023-01-16] VITALS (14 sets, daily range): BP systolic 106–161; BP diastolic 62–93
--- NOTE | 2023-01-16 05:58 | NUR ---
shift summary patient neuro remains intact and unchaged. vital signs stable. surgical no tele. patient received two units of blood. patient reports pain in bilateral extremities, and has received pain medications per emar. see emar. patient is npo since midnight. patient uses call light appropriately to make needs known. patient up most of the night and went to bed around 0500. plan to have surgery today for below knee amputation. call light within reach. no acute changes this shift.
--- NOTE | 2023-01-16 08:18 | NUR ---
ASSUMED CARE OF PATIENT. HE COMPLAINS OF CHILLS AND EXHAUSTION WITH SHOOTING PAIN IN HIS LEGS. PT WAS MEDICATED PER EMAR AND VITALS WERE ASSESSED.
[2023-01-16 08:58] LABS: Bun/Creatinine Ratio 11.6 (12.0-20.0); Calcium, Blood 8.2 mg/dL (8.5-10.1); Creatinine, Blood 5.44 mg/dL (0.60-1.20); Potassium, Blood 3.9 mmol/L (3.5-5.5)
--- NOTE | 2023-01-16 11:44 | NUR ---
PT EDUCATED ON APPROPRIATE PAIN CONTROL MEASURES. PT STATES UNDERSTANDING. PT MEDICATED PER JUL. PT STATES SURGEON TO REEVALUATE PLANS THIS AFTERNOON REGARDING RIGHT ABOVE THE KNEE AMB.
--- NOTE | 2023-01-16 12:31 | NUR ---
PT REPOSITIONED AND MEPILEX PLACED ON COCCYX FOR PREVENTION. PT RIGHT SIDED EDEMA HAS INCREASED TO RIB CAGE AND MARKED WITH PEN. PT EDUCATED ON PAIN MANAGEMENT AGAIN AND MEDICATED PER JUL.
--- NOTE | 2023-01-16 15:03 | NUR ---
PT SPOKE WITH DR GRIFFITH AND DR BRAVO REGARDING AMPUTATION OF RIGHT LEG. PT STATES HE IS NOT READY AND WOULD LIKE TO WAIT TO MAKE THE DECISION TO AMPUTATE. PT EDUCATED ON THE RISK AND BENEFITS OF WAITING AND STATES UNDERSTANDING. EMOTIONAL SUPPORT OFFERED TO PT AND FAMILY AND ALL QUESTIONS ANSWERED AT THIS TIME. FAMILY REQUESTING NO ADDITIONAL VISITS FROM FOIL STAMP OPERATOR SERVICES.
--- NOTE | 2023-01-16 15:27 | NUR ---
DR. HERNANDEZ IN TO ASSESS PATIENT. PLAN FOR ANGIOGRAM. ALLIGATOR HUNTER IN TO BRING PATIENT TO HEART CENTER AT THIS TIME. PATIENT NOTIFIED FAMILY VIA PERSONAL CELLPHONE.
--- NOTE | 2023-01-16 16:36 | NUR ---
PT BACK FROM ANGIO. PETAL PULSES STRONG IN BOTH FEET. BED FLAT AND LOCKED. VITALS STABLE. SITE HAS NO BLEEDING OR SWELLING
--- NOTE | 2023-01-16 16:46 | NUR ---
PT'S FATHER NOTIFIED PT IS BACK FROM ANGIO AND RESTING
--- NOTE | 2023-01-16 23:50 | NUR ---
TRANSFER OF CARE: PT ALERT AND ORIENTED X4, ABLE TO FOLLOW COMMANDS AND MAKE NEEDS KNOWN. BP AND HR STABLE. AFEBRILE. SATS >98% ON ROOM AIR. RESPIRATIONS EVEN AND UNLABORED. PT YELLING OUT AT START OF SHIFT, THIS RN TO ROOM, PT REQUESTING MORE PAIN MEDICATIONS. MEDICATED PER EMAR, PT STATES "I ALREADY KNOW YOU ARE GOING TO HAVE TO GIVE ME MORE." R. LEG REPOSITIONED, PT STATES MINIMAL IMPROVEMENT. WOUND VAC IN PLACE TO RIGHT LEG. PT WITH L FEMORAL SITE, DRESSING C/D/I. PT STATES TENDERNESS. NO BRUISING/HEMATOMA NOTED. FAMILY AT BEDSIDE THIS EVENING, UPDATED ON PT WITH PERMISSION. PT SURGICAL STATUS NO TELE. BED IN LOW, CALL LIGHT IN REACH, WILL REPORT TO LYLE Lynch RN
[2023-01-17] VITALS (20 sets, daily range): BP systolic 125–181; BP diastolic 77–107
[2023-01-17 03:50] LABS: BASOPHILS ABSOLUTE AUTO 0.03 K/mm3 (0.00-0.23); BASOPHILS PERCENT AUTO 0 % (0-2); EOSINOPHILS ABSOLUTE AUTO 0.46 K/mm3 (0.00-0.68); EOSINOPHILS PERCENT AUTO 3 % (0-6); Hematocrit 20.6 % (37.0-53.0); Hemoglobin 7.2 g/dL (13.5-17.5); IMMATURE GRAN ABSOLUTE AUTO 0.26 K/mm3 (0.00-0.10); IMMATURE GRAN PERCENT AUTO 2 % (0-1); LYMPHOCYTES ABSOLUTE AUTO 1.36 K/mm3 (0.84-5.20); LYMPHOCYTES PERCENT AUTO 8 % (21-46); MONOCYTES ABSOLUTE AUTO 1.79 K/mm3 (0.16-1.47); MONOCYTES PERCENT AUTO 11 % (4-13); Mean Corpuscular Volume 89 fL (80-100); Mean Platelet Volume 10.3 fL (9.1-12.4); NEUTROPHILS PERCENT AUTO 76 % (41-73); Platelet Count 196 K/mm3 (150-400); RDW Coefficient Variation 20.8 % (11.7-14.2); RDW Standard Deviation 66.9 fL (35.1-46.3); Red Blood Cell Count 2.32 M/mm3 (4.30-5.90)
[2023-01-17 04:13] LABS: Albumin, Blood 2.2 g/dL (3.4-5.0); Bilirubin, Total 0.5 mg/dL (0.1-1.0); Bun/Creatinine Ratio 13.3 (12.0-20.0); Calcium, Blood 7.9 mg/dL (8.5-10.1); Creatinine, Blood 6.79 mg/dL (0.60-1.20); Globulin, Blood 2.2 g/dL (2.2-4.0); Magnesium, Blood 2.2 mg/dL (1.6-2.4); Potassium, Blood 4.4 mmol/L (3.5-5.5); Total Protein, Blood 4.4 g/dL (6.4-8.2)
--- NOTE | 2023-01-17 04:30 | NUR ---
SHIFT SUMMARY SINCE ASSUMING CARE OF PT, PT HAS BEEN RESTING IN BED AWAKE. PLEASANT AND COOPERATIVE. REPORTS 10/10 PAIN TO BLE. MEDICATING WITH ORAL OXYCODONE/TYLENOL AND IV DILAUDID FOR BREAKTHROUGH PAIN MANAGEMENT. WOUND VAC TO RLE REMAINS INTACT WITH SS DRAINAGE PRESENT IN CANISTER. LEFT GROIN SITE WNL. VOIDED X1 WITH URINAL. REINFORCED FLUID RESTRICTION. PT USES CALL LIGHT APPROPRIATELY.
--- NOTE | 2023-01-17 06:32 | NUR ---
WOUND VAC CANISTER FULL AND CHANGED AT THIS TIME.
--- NOTE | 2023-01-17 09:17 | NUR ---
PT TO DIALYSIS
--- NOTE | 2023-01-17 12:44 | NUR ---
PT BACK IN ROOM FROM DIALYSIS, VITALS STABLE, GROIN SITE SLIGHTLY TENDER WITH NO BLEEDING OR SWELLING
--- NOTE | 2023-01-17 16:30 | NUR ---
WOUND CARE WOUND VAC DRESSING CHANGED. SPOKE WITH DR. HAND VERBAL ORDER RECIEVED TO DC WHITE GAUZE AND LOWER PRESSURE TO 100MMHG. WOUND RN WILL RETURN TOMORROW TO CHANGE VAC AND REASSESS
--- NOTE | 2023-01-17 18:33 | NUR ---
WOUND VAC CHAMBER CHANGED WITH 350ML OUTPUT OF SEROUS DRAINAGE
[2023-01-18] VITALS (15 sets, daily range): BP systolic 140–171; BP diastolic 49–105
[2023-01-18 03:53] LABS: Hematocrit 20.2 % (37.0-53.0); Hemoglobin 6.9 g/dL (13.5-17.5)
[2023-01-18 04:13] LABS: Albumin, Blood 2.1 g/dL (3.4-5.0); Anion Gap 8 mmol/L (6-16); Blood Urea Nitrogen 59 mg/dL (8-24); Bun/Creatinine Ratio 10.5 (12.0-20.0); CO2, Blood 28 mmol/L (21-32); Calcium, Blood 8.1 mg/dL (8.5-10.1); Chloride, Blood 95 mmol/L (98-108); Creatinine, Blood 5.63 mg/dL (0.60-1.20); Glomerular Filtration Rate 12 (60-); Glucose, Blood 121 mg/dL (70-99); Magnesium, Blood 2.3 mg/dL (1.6-2.4); Phosphorus, Blood 5.1 mg/dL (2.5-4.9); Potassium, Blood 4.1 mmol/L (3.5-5.5); Sodium, Blood 131 mmol/L (136-145)
--- NOTE | 2023-01-18 05:54 | NUR ---
Shift Summary Pt c/o severe shooting pain in BLE t/o the night, medicating per emar did not bring it down. Called nighttime resident who first added an additional 12 mcg fentanyl patch. This and his other PRNs seemed to bring the pain down for a few hours and then he was back in severe 10/10 pain. Called the hospitalist who ordered a 1 time dose of 1 mg IV dilauded. After administration pt stated his pain was 9/10 but managable. Pt BLE maintaned good color, sensation, movement and pulses t/o the night. Wound vac in place RLE and draining yellow exudate. Wound vac dressing C/D/I with no leaks. Pt on bedrest with legs elevated. AOx4, cooperative with care.
--- NOTE | 2023-01-18 13:12 | NUR ---
SHIFT SUMMARY/TRANSFER NOTE This RN assumed care at 0700. vital signs stable. patient reports pain in bilateral lower extremities, and received pain medication per emar. patient reports no chest pain/pressure or shortness of breath. rickey in to see patient this am. patient and family updated on plan of care. patient had dialysis this am. see shift assessment for further detials. this rn gave report and is transfering patient to room 229.
--- NOTE | 2023-01-18 13:35 | NUR ---
ARRIVED TO ROOM 229 FROM PCU 19. TRANSFERRED IN BED, ALONG WITH POSSESSIONS. FAMILY BEDSIDE. MEDICATED FOR WOUND VAC DRESSING CHANGE. PT RATES PAIN TO BLE 10/1O WITH RLE HURTING MORE. SWALLOWED PILLS WITHOUT DIFFICULTY. CALL LIGHT IN REACH.
--- NOTE | 2023-01-18 14:57 | NUR ---
DR BOLAND IN TO SEE PT LETITIA/FISH HATCHERY SPECIALIST IN PROCESS OF CHANGING WOUND VAC
--- NOTE | 2023-01-18 16:39 | NUR ---
WOUND CARE RLE WOUND VAC DRESSING CHANGED. MEDIAL AND LATERAL WOUND BEDS SHOWING IMPROVEMENT. WOUND VAC SET TO CONTINOUS 100MMHG. IF WOUNDS CONTINUE TO IMPROVE WILL INCREASE TO 120MMHG SATURDAY.
--- NOTE | 2023-01-18 17:51 | NUR ---
SUMMARY PT ARRIVED TO UNIT FROM PCU THIS AFTERNOON. LETITIA/RENEWABLE ENERGY TECHNICIAN CAME AND CHANGED WOUND VAC TO RLE. PT MEDICATED PER ORDERS FOR PAIN. RESTS WITH EYES CLOSED, MOANS OCCASIONALLY. CALL LIGHT IN REACH.
[2023-01-19] VITALS (18 sets, daily range): BP systolic 135–172; BP diastolic 90–110
[2023-01-19 06:12] LABS: Hematocrit 25.4 % (37.0-53.0); Hemoglobin 8.6 g/dL (13.5-17.5)
--- NOTE | 2023-01-19 06:33 | NUR ---
SHIFT SUMMARY NOC. PT WITH COMPARTMENT SYNDROME, I&D, AND FASCIOTOMY TO RIGHT LOWER EXTREMITY. PT HAS BEEN MEDICATED FOR PAIN X3 WITH MINIMAL REPORTED RELIEF. PT WAS ABLE TO GET SLEEP DURING SHIFT PER HIS REPORT AND DIRECT OBSERVATION. WOUND VAC IS COMPRESSED AND INTACT, DRAINING ORANGE/BROWN DRAINAGE. PT VOIDING VIA URINAL. PT UTILIZES CALL LIGHT APPROPRIATLY.
[2023-01-19 06:49] LABS: Albumin, Blood 2.4 g/dL (3.4-5.0); Anion Gap 6 mmol/L (6-16); Blood Urea Nitrogen 55 mg/dL (8-24); Bun/Creatinine Ratio 10.2 (12.0-20.0); CO2, Blood 30 mmol/L (21-32); Calcium, Blood 8.6 mg/dL (8.5-10.1); Chloride, Blood 97 mmol/L (98-108); Creatinine, Blood 5.37 mg/dL (0.60-1.20); Glomerular Filtration Rate 13 (60-); Glucose, Blood 101 mg/dL (70-99); Magnesium, Blood 2.2 mg/dL (1.6-2.4); Phosphorus, Blood 5.3 mg/dL (2.5-4.9); Potassium, Blood 4.2 mmol/L (3.5-5.5); Sodium, Blood 133 mmol/L (136-145)
--- NOTE | 2023-01-19 18:53 | NUR ---
SHIFT SUMMARY POD16 RLE FASCIOTOMY, A/OX4, VSS, TOLERATING PO, PAIN MANAGED PER EMAR, PT REPORTS 10 OUT OF 10 PAIN BUT SHOWS VISIBLE SIGNS OF PAIN RELIEF AFTER HE IS GIVEN PAIN MEDICATIONS, DIALYSIS TODAY WITHOUT EVENTS, NO ACUTE EVENTS THIS SHIFT, [facility]
[2023-01-20 04:47] VITALS: BP 149/94
[2023-01-20 05:38] LABS: Hematocrit 22.8 % (37.0-53.0); Hemoglobin 7.7 g/dL (13.5-17.5)
[2023-01-20 06:03] LABS: Albumin, Blood 2.3 g/dL (3.4-5.0); Anion Gap 3 mmol/L (6-16); Blood Urea Nitrogen 51 mg/dL (8-24); Bun/Creatinine Ratio 10.8 (12.0-20.0); CO2, Blood 32 mmol/L (21-32); Calcium, Blood 8.7 mg/dL (8.5-10.1); Chloride, Blood 96 mmol/L (98-108); Creatinine, Blood 4.73 mg/dL (0.60-1.20); Glomerular Filtration Rate 15 (60-); Glucose, Blood 100 mg/dL (70-99); Magnesium, Blood 2.2 mg/dL (1.6-2.4); Phosphorus, Blood 4.8 mg/dL (2.5-4.9); Potassium, Blood 4.1 mmol/L (3.5-5.5); Sodium, Blood 131 mmol/L (136-145)
--- NOTE | 2023-01-20 06:18 | NUR ---
SHIFT SUMMARY POD 17 R LE FACIA W/ WOUND VAC PLACEMENT. PT RECEIVES DIALYSIS TO PERMACATH IN R UPPER CHEST 3X WEEK. POWER GLIDE IV'S TO BL INNER ARMS. PT VERY PAINFUL W/ 10/10 PAIN T/O NIGHT W/ MINIMAL RELIEF W/ MEDS. PT A&OX4, FRIENDLY AND MINIMAL SUPPORT. PT EASILY DISTRACTABLE FROM PAIN W/ CONVERSATION. PT INDEPEND W/ URINAL IN MINIMAL AMOUNTS. FENTANYL PATCH IN PLACE TO LEFT CHEST. LG BM THIS SHIFT. WILL CONTINUE W/ PAIN MANAGEMENT SCHEDULE.
[2023-01-20 08:59] VITALS: BP 162/102
[2023-01-20 15:09] VITALS: BP 152/94
--- NOTE | 2023-01-20 17:49 | NUR ---
SHIFT SUMMARY S/P RLE FASCIOTOMY, A/XO4, VSS, TOLERATING PO, PAIN MANAGED PER EMAR, PT REPORTS 10/10 PAIN WITH ALL PAIN MEDICATION ADMINISTRATIONS AND MOST RE-ASSESSMENTS HAVE BEEN STILL AT A 10/10 EXCEPT ONE WHERE HE REPORTED A 9/10 PAIN. AT EACH REASSESSMENT HE LOOKS MORE COMFORTABLE THAN WHEN HE WAS GIVEN HIS PAIN MEDICATION PREVIOUSLY BUT IS STILL CONSISTENTLY REPORTING HIGH PAIN LEVELS. WOUND VAC HAD 300ML OUTPUT TODAY WHICH WAS A CLEAR/BROWN COLOR IT HAS BEEN YESTERDAY AND LAST NIGHT. PT REPORTS DOING THERAPY EXERCISES IN BED TODAY AND CONTRIBUTES THEM TO SOME OF HIS PAIN. NO ACUTE EVENTS THIS SHIFT, CALL LIGHT IN REACH.
[2023-01-20 19:52] VITALS: BP 156/98
[2023-01-21] VITALS (20 sets, daily range): BP systolic 70–162; BP diastolic 27–118
[2023-01-21 04:48] LABS: BASOPHILS ABSOLUTE AUTO 0.04 K/mm3 (0.00-0.23); BASOPHILS PERCENT AUTO 0 % (0-2); EOSINOPHILS ABSOLUTE AUTO 0.39 K/mm3 (0.00-0.68); EOSINOPHILS PERCENT AUTO 4 % (0-6); Hematocrit 21.6 % (37.0-53.0); Hemoglobin 7.2 g/dL (13.5-17.5); IMMATURE GRAN PERCENT AUTO 1 % (0-1); LYMPHOCYTES ABSOLUTE AUTO 1.21 K/mm3 (0.84-5.20); LYMPHOCYTES PERCENT AUTO 13 % (21-46); MONOCYTES ABSOLUTE AUTO 1.07 K/mm3 (0.16-1.47); MONOCYTES PERCENT AUTO 12 % (4-13); Mean Corpuscular HGB 31.2 pg (26.0-34.0); Mean Corpuscular HGB Conc 33.3 g/dL (31.5-36.5); Mean Corpuscular Volume 94 fL (80-100); Mean Platelet Volume 10.5 fL (9.1-12.4); NEUTROPHILS PERCENT AUTO 70 % (41-73); Platelet Count 239 K/mm3 (150-400); RDW Standard Deviation 58.2 fL (35.1-46.3); Red Blood Cell Count 2.31 M/mm3 (4.30-5.90); White Blood Cell Count 9.31 K/mm3 (4.00-11.30)
[2023-01-21 05:07] LABS: Albumin, Blood 2.3 g/dL (3.4-5.0); Anion Gap 6 mmol/L (6-16); Blood Urea Nitrogen 71 mg/dL (8-24); Bun/Creatinine Ratio 11.5 (12.0-20.0); CO2, Blood 30 mmol/L (21-32); Chloride, Blood 93 mmol/L (98-108); Creatinine, Blood 6.16 mg/dL (0.60-1.20); Glomerular Filtration Rate 11 (60-); Glucose, Blood 110 mg/dL (70-99); Magnesium, Blood 2.3 mg/dL (1.6-2.4); Phosphorus, Blood 5.9 mg/dL (2.5-4.9); Potassium, Blood 4.6 mmol/L (3.5-5.5); Sodium, Blood 129 mmol/L (136-145)
--- NOTE | 2023-01-21 06:36 | NUR ---
SHIFT SUMMARY POD 16, RLL FACHIA, WOUND VAC IN PLACE, C/D/I. DRESSING CHANGE PLANNED FOR TODAY. A&OX4, PLEASANT AND VERY PAINFUL. PT FREQUENT LOUD MOANING, DISCUSSED W/ PT PLAN OF ACTION FOR PAIN MED SCHEDULE, AND DISTURBANCE OF NEIGHBORS. PT HAS REFRAINED FROM CONTINUED LOUD CRY OUTS/MOANING. PT EASILY DISTRACTED FROM PAIN BY CONVERSATION/ VISITORS. ENCOURAGED PT TO REQUEST FAMILY VISITING. PT CONTINUES TO REPORT 10/10 PAIN TO RLE THAT IS MINIMALLY RELIEVED FROM 10MG OXY AND TYLENOL. ENCOURAGED PT ACTIVITY, DEEP BREATHING EXERCISES, AND RISKS ASSOCIATED W/ BEDREST, V/U. PT USE OF IS THIS SHIFT. PT INDEP W/ URINAL AND BEDPAN @BEDSIDE. NO ACUTE CHANGES THIS SHIFT. CALL LIGHT W/IN REACH.
--- NOTE | 2023-01-21 15:29 | NUR ---
SHIFT SUMMARY: FASCIOTOMY ON RIGHT LEG ON 01/03/23 PATIENT IS A&OX4. VS ARE WNL AND IS ON RA. PAIN IS MANAGED WITH HIS PO OXY AND TYLENOL. LETITIA VIDEO SYSTEM REPAIRER CHANGED HIS WOUND VAC DRESSING TODAY 01/21/23 AND IS C/D/I WITH BLACK FOAM COMPRESSED WITH NO LEAKS. PATIENT DENIES NUMBNESS OR TINGLING IN ALL EXTREMITIES. HE IS TOLERATING PO INTAKE AND IS VOIDING. PATIENT DID HAVE DIALYSIS THIS MORNING WELL. PATIENT CALLS APPROPRIATELY WITH CALL LIGHT IN REACH AND SISTER IN LAW AT BEDSIDE. THE PLAN IS TO DISCHARGE TO A SNF TOMORROW IF APPROVAL IS OBTAINED AND PATIENT IS STILL APPROPRIATE TO DISCHARGE TO SNF. WILL CONTINUE TO MANAGE PAIN WITH ORAL PAIN MEDICATIONS.
--- NOTE | 2023-01-21 16:11 | NUR ---
WOUND CARE BLACK FOAM SOAKED WITH LIQUID LIDOCAINE FOR 20 MINUTES BEFORE REMOVAL. MEDIAL AND LATERAL LLE WOUNDS CLEANSED WITH NS. TISSUE IS VIABLE WITH NEW GRANULATION FORMING. WOUND MARGINS ARE MARITZA AND SWELLING IS DECREASING. VAC PRESSURE INCREASED TO CONTINUOUS 120MMHG. PT TOLERATED WELL. NEXT CHANGE WED.
[2023-01-22] VITALS (11 sets, daily range): BP systolic 138–173; BP diastolic 81–102
--- NOTE | 2023-01-22 05:13 | NUR ---
SHIFT SUMMARY NO ACUTE CHANGES NOTED THROUGH THE NIGHT, VSS, PT REMAINS A&O X4, ON RA, I/S ENC, RESP UNLABORED. SS FLUID NOTED IN WOUND VAC, DRSG C/D/I, CIRC WNL, PT REPORTS MINOR NUMBNESS/TINGLING, PT CAN WIGGLE ALL TOES, PT ENC TO KEEP R.LEG ELEVATED ON PILLOWS, ICE PACKS IN PLACE, PAIN MANAGED PER EMAR, TOLERATING PO INTAKE, VOIDING WNL, RESTING QUIETLY AT THIS TIME, NO REQUESTS, CALL LIGHT IN REACH, WCTM & REPORT TO DAY RN.
[2023-01-22 06:21] LABS: BASOPHILS ABSOLUTE AUTO 0.03 K/mm3 (0.00-0.23); BASOPHILS PERCENT AUTO 0 % (0-2); EOSINOPHILS ABSOLUTE AUTO 0.24 K/mm3 (0.00-0.68); EOSINOPHILS PERCENT AUTO 3 % (0-6); Hematocrit 19.8 % (37.0-53.0); Hemoglobin 6.5 g/dL (13.5-17.5); IMMATURE GRAN ABSOLUTE AUTO 0.09 K/mm3 (0.00-0.10); IMMATURE GRAN PERCENT AUTO 1 % (0-1); LYMPHOCYTES ABSOLUTE AUTO 1.14 K/mm3 (0.84-5.20); LYMPHOCYTES PERCENT AUTO 14 % (21-46); MONOCYTES ABSOLUTE AUTO 1.24 K/mm3 (0.16-1.47); MONOCYTES PERCENT AUTO 15 % (4-13); Mean Corpuscular HGB Conc 32.8 g/dL (31.5-36.5); Mean Corpuscular Volume 94 fL (80-100); Mean Platelet Volume 10.7 fL (9.1-12.4); NEUTROPHILS PERCENT AUTO 67 % (41-73); Platelet Count 243 K/mm3 (150-400); RDW Coefficient Variation 17.2 % (11.7-14.2); RDW Standard Deviation 59.4 fL (35.1-46.3); White Blood Cell Count 8.24 K/mm3 (4.00-11.30)
[2023-01-22 06:44] LABS: Albumin, Blood 2.5 g/dL (3.4-5.0); Anion Gap 3 mmol/L (6-16); Blood Urea Nitrogen 53 mg/dL (8-24); Bun/Creatinine Ratio 10.8 (12.0-20.0); CO2, Blood 31 mmol/L (21-32); Calcium, Blood 9.5 mg/dL (8.5-10.1); Chloride, Blood 99 mmol/L (98-108); Creatinine, Blood 4.89 mg/dL (0.60-1.20); Glomerular Filtration Rate 15 (60-); Glucose, Blood 101 mg/dL (70-99); Magnesium, Blood 2.2 mg/dL (1.6-2.4); Phosphorus, Blood 4.8 mg/dL (2.5-4.9); Potassium, Blood 4.5 mmol/L (3.5-5.5); Sodium, Blood 133 mmol/L (136-145)
--- NOTE | 2023-01-22 11:34 | NUR ---
DR BOLAND IN TO SEE PT.
--- NOTE | 2023-01-22 11:35 | NUR ---
DR BOLAND IN TO SEE PT.
--- NOTE | 2023-01-22 16:13 | NUR ---
ROOPA/PHARMACIST ADVISED TO ADMINISTER ARANESP AFTER PRBCS FINISH INFUSING.
--- NOTE | 2023-01-22 16:23 | NUR ---
ANXIETY/PAIN PT STATED HIS "HEART IS BEATING FASTER WITH THE BLOOD." AT THAT TIME, PRBCS HAD NOT STARTED INFUSING, ONLY NORMAL SALINE WAS INFUSING. IV HAD FLUSHED WITHOUT DIFFICULTY. VSS. AT APPROXIMATELY 1530, PT STATED HE WAS HAVING PAIN "EVERYWHERE". VSS. PRBCS INFUSING AT 75 ML PER HOUR. PT APPEARED ANXIOUS, MEDICATED PER ORDERS FOR ANXIETY. CALLED AND DISCUSSED WITH DR RAMIREZ. ADVISED TO GIVE 10MG OXYCODONE AT THAT TIME, WHICH WAS DONE PER ORDERS AND CONTINUE PRBCS. UPON ENTERING ROOM TO REASSESS PAIN, FOUND PT SLEEPING SOUNDLY. VSS. WOKE TO VOICE/TOUCH. WHEN ASKED IF PAIN WAS IMPROVED, PT STATED YEAH, THEN BEGAN MOANING SLIGHTLY. PRBCS CONTINUE TO INFUSE PER ORDERS. FAMILY MEMBER AT BEDSIDE.
--- NOTE | 2023-01-22 18:12 | NUR ---
APPARENT TRANSFUSION REACTION PT CONTINUED TO C/O OF PAIN "EVERYWHERE" CALLED DR RAMIREZ WITH CONCERNS OF REACTION, INSTRUCTED TO STOP TRANSFUSION WHICH WAS DONE AT 1735. AFTER STOPPING TRANSFUSION AND OBTAINING ORDERS FOR NORMAL SALINE, RETURNED TO ROOM AND FOUND PT HAVING UNCONTROLLABLE MUSCLE MOVEMENTS AND SAID FELT LIKE WAS POSSESSED. ASKED DR RAMIREZ TO COME TO EVALUATE PT, WHICH WAS DONE. LABS DRAWN PER ORDERS.
[2023-01-22 18:23] LABS: BASOPHILS ABSOLUTE AUTO 0.03 K/mm3 (0.00-0.23); BASOPHILS PERCENT AUTO 0 % (0-2); EOSINOPHILS ABSOLUTE AUTO 0.24 K/mm3 (0.00-0.68); EOSINOPHILS PERCENT AUTO 2 % (0-6); Hemoglobin 7.9 g/dL (13.5-17.5); IMMATURE GRAN ABSOLUTE AUTO 0.09 K/mm3 (0.00-0.10); IMMATURE GRAN PERCENT AUTO 1 % (0-1); LYMPHOCYTES ABSOLUTE AUTO 1.45 K/mm3 (0.84-5.20); LYMPHOCYTES PERCENT AUTO 14 % (21-46); MONOCYTES ABSOLUTE AUTO 1.48 K/mm3 (0.16-1.47); MONOCYTES PERCENT AUTO 14 % (4-13); Mean Corpuscular HGB 30.6 pg (26.0-34.0); Mean Corpuscular HGB Conc 32.9 g/dL (31.5-36.5); Mean Corpuscular Volume 93 fL (80-100); Mean Platelet Volume 10.1 fL (9.1-12.4); NEUTROPHILS PERCENT AUTO 68 % (41-73); Platelet Count 285 K/mm3 (150-400); RDW Coefficient Variation 17.2 % (11.7-14.2); RDW Standard Deviation 58.6 fL (35.1-46.3); Red Blood Cell Count 2.58 M/mm3 (4.30-5.90); White Blood Cell Count 10.29 K/mm3 (4.00-11.30)
--- NOTE | 2023-01-22 19:29 | NUR ---
SUMMARY ADMINISTERED SOLUMEDROL, BENADRYL AND PEPCID PER ORDERS. TELE PLACED PER ORDERS. MULTIPLE FAMILY MEMBERS AT BEDSIDE. PT APPEARS TO BE HAVING HALLUCINATIONS, STATING "FEELS" THE PEOPLE THAT REC'D BLOOD FROM. ANSWERS QUESTIONS APPROPRIATELY, FOLLOWS DIRECTIONS. REPORT GIVEN TO ONCOMING SHIFT. CALL LIGHT IN REACH.
[2023-01-22 20:05] LABS: Source, Urine Clean Catch
[2023-01-22 20:10] LABS: Appearance, Urine Clear (Clear); Bilirubin, Urine Neg (Neg); Blood, Urine 3+ (Neg); Glucose Qualitative, Urine Neg (Neg); Ketones, Urine Neg (Neg); Leukocyte Esterase, Urine Neg (Neg); Nitrite, Urine Neg (Neg); Protein, Urine 1+ (Neg); Urobilinogen, Urine NORM (Normal)
[2023-01-22 20:28] LABS: U Amphetamine Screen Not Detected; U Barbituate Screen Not Detected; U Benzodiazapine Screen Not Detected; U Buprenorphine Screen Not Detected; U Cannabinoids Screen DETECTED; U Cocaine Screen Not Detected; U Methadone Screen Not Detected; U Methamphetamine Screen Not Detected; U Opiates Screen DETECTED; U Oxycodone Screen DETECTED; U Phencyclidine Screen Not Detected; U Propoxyphene Screen Not Detected
[2023-01-22 20:31] LABS: Color, Urine Pale Yellow (P-Yellow)
[2023-01-22 20:32] LABS: Bacteria Rare /hpf; Squamous Epithelial Cells Rare /hpf (Few)
[2023-01-23] VITALS (19 sets, daily range): BP systolic 109–159; BP diastolic 71–96
--- NOTE | 2023-01-23 04:21 | NUR ---
SHIFT SUMMARY NOC. PT A&O X4. PT REPORTED "THE BAD GUYS ARE IN HIS HEAD" AND HIS MEDICATIONS "MAKE THEM GO AWAY". DENIES AUDITORY OR VISUAL HALLUCINATIONS WHEN ASKED. PT APPEARS EUPHORIC DURING CONVERSATION WHEN FAMILY MEMBERS ARE PRESENT. PT HAS HAD NO SOB OR CHEST PAIN THIS SHIFT. PT MEDICATED FOR PAIN NEEDED WITH MINIMAL RELIEF. PT RESTED WITH EYES CLOSED MOST OF THE NIGHT.
[2023-01-23 04:59] LABS: Hematocrit 25.1 % (37.0-53.0); Hemoglobin 8.3 g/dL (13.5-17.5)
[2023-01-23 05:19] LABS: Magnesium, Blood 2.3 mg/dL (1.6-2.4)
[2023-01-23 05:48] LABS: Albumin, Blood 2.7 g/dL (3.4-5.0); Anion Gap 5 mmol/L (6-16); Blood Urea Nitrogen 69 mg/dL (8-24); CO2, Blood 29 mmol/L (21-32); Calcium, Blood 10.7 mg/dL (8.5-10.1); Chloride, Blood 96 mmol/L (98-108); Creatinine, Blood 5.73 mg/dL (0.60-1.20); Glomerular Filtration Rate 12 (60-); Glucose, Blood 157 mg/dL (70-99); Phosphorus, Blood 7.1 mg/dL (2.5-4.9); Sodium, Blood 130 mmol/L (136-145)
--- NOTE | 2023-01-23 08:35 | NUR ---
DISCUSSION WITH DR RAMIREZ AND SISTER WHO ADMITS TO PROVIDING MARIJUANA VIA VAPE PEN TO PATIENT ON 01/22. SISTER AND PATIENT INFORMED THAT THEY HAVE BEEN NON COMPLIANT WITH OUR KNOWN AND DOCUMENTED POLICY REGARDING A TOBACCO AND IGNITION SOURCE FREE CAMPUS. SISTER ASKED TO LEAVE PREMISES, 1:1 SITTER CALLED IN AT THIS TIME. STAFF MEMBER TO REMAIN WITH PATIENT UNTIL DESIGNATED SITTER ARRIVES.
--- NOTE | 2023-01-23 11:32 | NUR ---
DISCUSSION WITH CARLOZ JERONIMO, MOTHER WILL BE ALLOWED IN TO MEET WITH PATIENT AND DISCHARGE PLANNING. MOTHER WILL BE INSTRUCTED ON OUR TOBACCO FREE AND NO IGNITION SOURCE POLICY AND HAS BEEN INSTRUCTED TO LEAVE PERSONAL BELONGINGS IN CARE. PATIENT AND MOTHER WILL REMAIN ON DIRECT 1:1 OBSERVATION.
--- NOTE | 2023-01-23 14:52 | NUR ---
SUPERVISOR CHEMICAL IN ROOM AT ABOUT 0800. 3L LITERS REMOVED. DIALYSIS COMPLETED AT 1100. PT TOLERATED WELL, VSS.
--- NOTE | 2023-01-23 14:53 | NUR ---
SEWING MACHINE REPAIRER GERARD IN ROOM AT 1300 FOR WOUND VAC DRESSING CHANGE. PT MOTHER AT BEDSIDE FROM 1230 TO 1430, 1 ON 1 SITTER PRESENT DURING THIS TIME AND CURRENTLY.
--- NOTE | 2023-01-23 15:42 | NUR ---
WOUND CARE RLE WOUND VAC CHANGED PER ORDER. MEDIAL AND LATERAL WOUNDS CONTINUE TO IMPROVE. EDEMA IS DECREASED. WOUND BEDS ARE FOR THE MOST PART FLUSH WITH PERIWOUND. WOUND BEDS APPEAR VIABLE WITH NEW GRANULATION AND EPITHELIAL TISSUE FORMING. LATERAL WOUND WITH SOME SLOUGH THAT WILL NEED LIGHT DEBRIDEMENT SOON. VAC SET TO CONTINOUS 120MMHG. [facility]. PT TOLERATED WELL.
--- NOTE | 2023-01-23 16:55 | NUR ---
SUMMARY: PT IS S/P FASCIOTOMY. A/O, VSS. PT REPORTED SOME VISUAL HALLUCINATIONS THIS MORNING AND REPORTED ANXIETY. SEE THIS RN'S SHIFT ASSESSMENT. PT REASSURED THAT THERE WAS NO OTHER PERSON IN THE ROOM OTHER THAN STAFF. PT PLEASENT TODAY AND MUCH LESS PARANOID AND ANXIOUS TONIGHT. PT HAS NOT REPORTED SEEING HALLUCINATIONS SINCE THIS MORNING. FACESHEET FOR CONSULTING DR. CLIFFORD SENT TO ER AT THIS TIME. PT PAIN HAS BEEN MANAGED WITH FENTANYAL PATCH AND OXY Q4. GIVEN SCHEDULED ZOLOFT FOR ANXIETY. WOUND VAC SITES CDI, COMPRESSED. DRAIN AMT HAS SEEMED TO SLOW DOWN. 150ML SS DRAINED FOR THIS SHIFT. PT AGREED TO WORK WITH OT/PT AND ABLE TO DO EXERCISES IN BED AND TRANSFER TO CHAIR. 1 ON 1 SITTING STARTED AT ABOUT 0945 AND CONTINUES NOW, PT EDUCATED ON RISK OF USING IGNITION SOURCES IN HOSPITAL FROM SEVERAL STAFF TODAY, AND REPORTS NOT HAVE ANY LIGHTERS. PT FAMILY EDUCATED WELL, ONLY PT MOM ALLOWED IN ROOM TODAY. PT VERBALIZED UNDERSTANDING. PLAN IS DC HOME SATURDAY, SEE DC CASH POSTING CLERK NOTE. NO ACUTE SAFETY CONCERNS AT THIS TIME.
[2023-01-24] VITALS (21 sets, daily range): BP systolic 127–169; BP diastolic 86–115
[2023-01-24 06:05] LABS: Hematocrit 22.4 % (37.0-53.0); Hemoglobin 7.5 g/dL (13.5-17.5)
[2023-01-24 06:24] LABS: Albumin, Blood 3.3 g/dL (3.4-5.0); Anion Gap 6 mmol/L (6-16); Blood Urea Nitrogen 64 mg/dL (8-24); Bun/Creatinine Ratio 13.8 (12.0-20.0); CO2, Blood 31 mmol/L (21-32); Calcium, Blood 10.6 mg/dL (8.5-10.1); Chloride, Blood 95 mmol/L (98-108); Creatinine, Blood 4.64 mg/dL (0.60-1.20); Glomerular Filtration Rate 16 (60-); Glucose, Blood 129 mg/dL (70-99); Magnesium, Blood 2.3 mg/dL (1.6-2.4); Phosphorus, Blood 5.5 mg/dL (2.5-4.9); Potassium, Blood 4.1 mmol/L (3.5-5.5); Sodium, Blood 132 mmol/L (136-145)
--- NOTE | 2023-01-24 06:44 | NUR ---
SHIFT SUMMARY NOC. PT A&O X4. PT HAS BEEN ON BEDREST AND USING URINAL INDEPENDENTLY. PT HAS BEEN MEDICATED FOR PAIN AND ANXIETY WITH SOME RELIEF THIS SHIFT. WOUND VAC ON RLE IN PLACE, CONNECTED, AND PRODUCING DRAINAGE. TELEMETRY WAS DISCONTINUED THIS SHIFT PER ORDER AND WAS NSR IN THE 80'S PRIOR TO D/C. PT HAS NOT HAD A BOWEL MOVEMENT AND STILL NEEDS STOOL SAMPLE COLLECTED. PT'S POTASSIUM IS TRENDING DOWN TO 4.1 THIS MORNING FROM 6.0 PREVIOUSLY.
--- NOTE | 2023-01-24 11:37 | NUR ---
RN NOTE MR CONTRERAS IS ALERT, CALM, LOOKS RELAXED, HAS BEEN ON HIS MOBILE PHONE DEVICE. RIGHT LEG WITH DRESSING C,D,I. WOUND VAC WITH BROWN DRAINAGE. SEEN BY LETITIA, TATTOO IDENTIFIER THIS AM. HEMODIALYSIS BEING DONE IN THE ROOM CURRENTLY. PT SAID HIS PAIN IS 9-10/10 TO RLE AND LLE CONSTANTLY DESPITE PO MEDS AND FENTANYL PATCH. NO FACIAL GRIMACE. GIVEN MEDICATIONS FOR PAIN AND ANXIETY PER MAR AND REQUESTED BY PT. NO BM YET THIS SHIFT, PT REQUESTED MEDICATIONS AND GIVEN SENNA AND COLACE. BED LOW, CALL LIGHT IN REACH. SITTER AT BEDSIDE.
--- NOTE | 2023-01-24 14:09 | NUR ---
REPORT TO JUANJO PACHECO TO ASSUME CARE OF PT.
--- NOTE | 2023-01-24 14:10 | NUR ---
ASSUMED CARE RECEIVED REPORTS FROM PRIOR DAY RN ON THIS PATIENT, PT RESTING IN BED AT THIS TIME, REQUESTING TYLELNOL FOR PAIN BUT NO OTHER NEEDS, UPDATED HIM ON PLAN OF CARE REGARDING STAFFING CHANGE. NO QUESTIONS AT THIS TIME.
--- NOTE | 2023-01-24 15:33 | NUR ---
SHIFT SUMMARY S/P RLE FASCIOTOMY ON 01/03, A/OX4, VSS, TOLERATING PO, PAIN MANAGED WITH PO PAIN MEDICATIONS (SEE EMAR), PT INDEPENDENT WHILE IN HIS BED AND IS ABLE TO USE A WHEEL CHAIR WITH THERAPY, HE HAS HAD A 1:1 DIRECT OBSERVATION SITTER T/O THE SHIFT WITH AIDS/RN PROVIDING BREAKS TO HIS ASSIGNED SITTER WHEN NEEDED. NO ACUTE EVENTS THIS SHIFT, CALL LIGHT IN REACH.
--- NOTE | 2023-01-24 23:48 | NUR ---
PT IS LAYING IN BED WITH EYES CLOSED. APPEARS TO BE RESTING WELL, CALL LIGHT WITHIN REACH.
[2023-01-25] VITALS (16 sets, daily range): BP systolic 131–178; BP diastolic 94–120
[2023-01-25 06:26] LABS: Hematocrit 24.9 % (37.0-53.0); Hemoglobin 8.3 g/dL (13.5-17.5)
[2023-01-25 06:43] LABS: Albumin, Blood 3.2 g/dL (3.4-5.0); Anion Gap 5 mmol/L (6-16); Blood Urea Nitrogen 54 mg/dL (8-24); Bun/Creatinine Ratio 14.8 (12.0-20.0); CO2, Blood 32 mmol/L (21-32); Calcium, Blood 11.1 mg/dL (8.5-10.1); Chloride, Blood 98 mmol/L (98-108); Creatinine, Blood 3.66 mg/dL (0.60-1.20); Glomerular Filtration Rate 21 (60-); Glucose, Blood 97 mg/dL (70-99); Magnesium, Blood 2.2 mg/dL (1.6-2.4); Phosphorus, Blood 5.4 mg/dL (2.5-4.9); Potassium, Blood 4.2 mmol/L (3.5-5.5); Sodium, Blood 135 mmol/L (136-145)
--- NOTE | 2023-01-25 07:30 | NUR ---
SHIFT SUMMARY NOC. PT A/O X4. PT MEDICATED FOR PAIN AND ANXIETY WITH SOME RELIEF OF SX. PT'S RLE WOUND VAC IS COMPRESSED, INTACT, AND PRODUCING CORTEZ DISCHARGE. PT HAS BEEN USING THE URINAL AND VOIDING T/O THE NIGHT. PT BILATERAL POWERGLIDES WOULD FLUSH BUT NOT DRAW THIS MORNING. LAB CAME AND DONN LABS. PT CALLS APPROPRIATLY.
[2023-01-25 07:58] LABS: Stool Occult Blood Guaiac 1 Neg (Neg)
--- NOTE | 2023-01-25 13:19 | NUR ---
WOUND CARE RLE WOUND VAC DRESSING CHANGED. BLACK FOAM SOAKED WITH LIDOCAINE BEFORE REMOVING. WOUNDS CLEANSED WITH NS THEN BLACK FOAM REAPPLIED. LATERAL WOUND WITH SOME DARK DISCOLORATION ON WED. WOUND VAC PRESSURE DECREASED TO 1OOMMHG WITH GOOD RESULTS. WOUND BEDS ARE BEEFY RED WITH NEW GRANULATION AND EPITHELIAL TISSUE FORMING. EDEMA IS DECREASED. WOUND BLEDS ARE FOR THE MOST PART FLUSH WITH PERISKIN. PT TOLERATED CHANGE WELL
--- NOTE | 2023-01-25 13:45 | NUR ---
1:1 SITTER FOR START OF SHIFT AND PRESENT WHILE PT MOM AND SISTER VISITED THIS MORNING FOR ABOUT 45 MIN. PT ALSO RECEIVED DIALYSIS FROM 9:30 TO 11:30, 3L REMOVED. PT TOLERATED WELL.
--- NOTE | 2023-01-25 17:57 | NUR ---
SUMMARY: PT A/O,VSS. SURGICAL SITE AND WOUND VAC WNL, MINIMAL OUTPUT IN CANISTER, NOT CHARTED. WOUND VAC DRESSING CHANGED TODAY BY JUNIOR GEE. SWELLING HAS DECREASED. PT REPORTS PAIN MANAGED WITH FENTANYAL PATCHES AND OXY Q4. PT IS PLEASENT, MINIMAL ANXIETY TODAY, MAKE NEEDS KNOWN. PT TIRED AFTER DIALYSIS AND REFUSED OT/PT TODAY. NO ACUTE SAFETY CONCERNS, 1:1 SITTER WATCHED PT THIS ENTIRE SHIFT.
[2023-01-26 04:35] VITALS: BP 137/89
[2023-01-26 04:44] LABS: Hemoglobin 8.4 g/dL (13.5-17.5)
[2023-01-26 05:10] LABS: Albumin, Blood 3.1 g/dL (3.4-5.0); Anion Gap 5 mmol/L (6-16); Blood Urea Nitrogen 50 mg/dL (8-24); Bun/Creatinine Ratio 15.6 (12.0-20.0); CO2, Blood 31 mmol/L (21-32); Calcium, Blood 11.3 mg/dL (8.5-10.1); Chloride, Blood 98 mmol/L (98-108); Glomerular Filtration Rate 24 (60-); Glucose, Blood 102 mg/dL (70-99); Magnesium, Blood 2.2 mg/dL (1.6-2.4); Potassium, Blood 3.8 mmol/L (3.5-5.5); Sodium, Blood 134 mmol/L (136-145)
[2023-01-26 07:33] VITALS: BP 142/97
--- NOTE | 2023-01-26 08:23 | NUR ---
AICHA RN AGREES TO F/U WITH DR DE LA CRUZ REGARDING POSSIBLITY OF ANKLE TOP TENNIS SHOE OR OTHER DEVICE THAT MIGHT ASSIST IN PREVENTING R FOOT DROP.
--- NOTE | 2023-01-26 08:36 | NUR ---
PT WORKING WITH THERAPY
[2023-01-26 15:05] VITALS: BP 150/97
--- NOTE | 2023-01-26 17:17 | NUR ---
SUMMARY NO ACUTE CHANGES T/O SHIFT. PT WORKED WITH THERAPY THIS AM AND SAT UP IN RECLINER T/O MORNING. NOW RESTING IN BED. MEDICATED PER ORDERS FOR PAIN AND ANXIETY. ALSO MEDICATED PER PT REQUEST W/COLACE PER ORDERS. WOUND VAC COMPRESSED. 24 HOUR URINE COLLECTION IN PROCESS. CALL LIGHT IN REACH.
[2023-01-26 19:25] VITALS: BP 146/90
[2023-01-27] VITALS (19 sets, daily range): BP systolic 133–166; BP diastolic 89–111
--- NOTE | 2023-01-27 08:30 | NUR ---
SUMMARY PT ANXIOUS TONIGHT REGARDING DISCUSSION WITH DR RAMIREZ ABOUT HER DECREASING PAIN MEDS OVER TIME.I SPOKE WITH HOSPITALIST SINPU AND NO NEW ORDERS GIVEN.DR RECOMMENDING SAME DR RAMIREZ. I ADVISED PT.
[2023-01-27 09:58] LABS: Hematocrit 26.6 % (37.0-53.0)
[2023-01-27 10:11] LABS: Albumin, Blood 3.4 g/dL (3.4-5.0); Anion Gap 7 mmol/L (6-16); Blood Urea Nitrogen 70 mg/dL (8-24); Bun/Creatinine Ratio 18.8 (12.0-20.0); CO2, Blood 31 mmol/L (21-32); Calcium, Blood 12.4 mg/dL (8.5-10.1); Chloride, Blood 97 mmol/L (98-108); Creatinine, Blood 3.73 mg/dL (0.60-1.20); Glomerular Filtration Rate 20 (60-); Glucose, Blood 174 mg/dL (70-99); Magnesium, Blood 2.3 mg/dL (1.6-2.4); Phosphorus, Blood 5.6 mg/dL (2.5-4.9); Potassium, Blood 3.5 mmol/L (3.5-5.5); Sodium, Blood 135 mmol/L (136-145)
--- NOTE | 2023-01-27 17:10 | NUR ---
SUMMARY NO ACUTE CHANGES T/O SHIFT. PT HAD DIALYSIS IN ROOM THIS SHIFT. PT C/O OF INCREASED PAIN WITH DIALYSIS. MEDICATED PER ORDERS T/O DAY FOR PAIN AND ANXIETY. PT TOOK BED BATH THIS AFTERNOON. DISCUSSED WEAKNESS/DROP OF R FOOT WITH DR BOLAND. DR BOLAND DOES NOT WANT SHOE PLACED TO RLE, INSTEAD WOULD LIKE ROM EXERCISES W/PHYSICAL THERAPY. CALL LIGHT IN REACH.
[2023-01-28 02:10] VITALS: BP 138/89
[2023-01-28 05:31] LABS: Hematocrit 27.3 % (37.0-53.0); Hemoglobin 9.2 g/dL (13.5-17.5)
[2023-01-28 06:00] LABS: Anion Gap 8 mmol/L (6-16); Blood Urea Nitrogen 59 mg/dL (8-24); Bun/Creatinine Ratio 19.5 (12.0-20.0); CO2, Blood 30 mmol/L (21-32); Calcium, Blood 11.8 mg/dL (8.5-10.1); Chloride, Blood 97 mmol/L (98-108); Creatinine, Blood 3.03 mg/dL (0.60-1.20); Glomerular Filtration Rate 26 (60-); Glucose, Blood 105 mg/dL (70-99); Magnesium, Blood 2.4 mg/dL (1.6-2.4); Phosphorus, Blood 5.1 mg/dL (2.5-4.9); Potassium, Blood 3.8 mmol/L (3.5-5.5); Sodium, Blood 135 mmol/L (136-145)
--- NOTE | 2023-01-28 06:10 | NUR ---
SUMMARY NO ACUTE CHANGES.
[2023-01-28 07:36] VITALS: BP 128/99
--- NOTE | 2023-01-28 11:54 | NUR ---
therapy and wound care: PT WORKING WITH THERAPY TO MOBILIZE. PT MEDICATED FOR PAIN. WOUND CARE TO ROOM TO CHANGE WOUND VAC.
--- NOTE | 2023-01-28 14:46 | NUR ---
THERAPY: PT WORKING WITH THERAPY TO SIT UP IN WHEELCHAIR AND DO EXERCISES. PT ABLE TO WHEEL SELF AROUND UNIT WELL.
--- NOTE | 2023-01-28 16:07 | NUR ---
WOUND CARE RLE WOUND VAC DRESSING CHANGED. NEW PHOTO AND ASSESSMENT IN HARD CHART. WOUND TISSUE IS VIABLE. NEW GRANULATION AND EPITHELIAL TISSUE NOTED. NO S/S OF INFECTION. WOUND CLEANSED WITH NS. TWO PIECES OF BLACK FOAM APPLIED TO LATERAL AND MEDIAL WOUNDS. VAC IS SET TO CONTINUOUS 100MMHG. PT TOLERATED CHANGE WELL
[2023-01-28 16:11] VITALS: BP 143/98
--- NOTE | 2023-01-28 19:35 | NUR ---
PT HAS BEEN STABLE THIS SHIFT. PT WORKED WELL WITH THERAPY TO MOBILIZE TO WHEELCHAIR. PT MOVES SELF WELL IN BED. NO DIALYSIS THIS SHIFT. PERMACATH WNL TO RIGHT CHEST. WOUNDVAC CHANGED PER EXHAUST EMISSIONS INSPECTOR. SCANT DRAINAGE. PT HAS HIGH LEVELS OF PAIN. MEDICATED PRN WITH ROXICODONE AND TYLENOL. VISTARIL FOR ANXIETY NEEDED. PT TOLERATING DIET. PT VOIDING WELL. BM THIS AFTERNOON. CALLS APPROPRIATELY NEEDED. SURVEILLANCE INSPECTOR WORKING TO ARRANGE DISCHARGE FOR TOMORROW.
[2023-01-28 19:53] VITALS: BP 133/90
[2023-01-29] VITALS (13 sets, daily range): BP systolic 131–162; BP diastolic 66–97
--- NOTE | 2023-01-29 04:35 | NUR ---
SHIFT SUMMARY NO ACUTE CHANGES T/O NIGHT. ROXICODONE/TYLENOL FOR PAIN MANAGEMENT. WOUND VAC INTACT AND COMPRESSED. USING URINAL TO VOID. ANXIETY MEDS PRN. USES CALL LIGHT APPROPRIATELY.
[2023-01-29 04:41] LABS: Hematocrit 28.4 % (37.0-53.0); Hemoglobin 9.7 g/dL (13.5-17.5)
[2023-01-29 05:10] LABS: Albumin, Blood 4.1 g/dL (3.4-5.0); Anion Gap 7 mmol/L (6-16); Blood Urea Nitrogen 74 mg/dL (8-24); Bun/Creatinine Ratio 23.2 (12.0-20.0); CO2, Blood 30 mmol/L (21-32); Calcium, Blood 11.4 mg/dL (8.5-10.1); Chloride, Blood 98 mmol/L (98-108); Creatinine, Blood 3.19 mg/dL (0.60-1.20); Glomerular Filtration Rate 24 (60-); Glucose, Blood 106 mg/dL (70-99); Magnesium, Blood 2.5 mg/dL (1.6-2.4); Phosphorus, Blood 4.9 mg/dL (2.5-4.9); Potassium, Blood 3.7 mmol/L (3.5-5.5); Sodium, Blood 135 mmol/L (136-145)
--- NOTE | 2023-01-29 09:15 | NUR ---
PATIENT IS AT DIALYSIS.
--- NOTE | 2023-01-29 11:04 | NUR ---
PATIENT JUST CAME BACK FROM DIALYSIS EARLY STATING "I HAD TO END IT EARLY BECAUSE I FELT LIKE THE LIFE WAS GETTING SUCKED OUT OF ME". PATIENT IS CURRENTLY LAYING IN BED WITH CALL LIGHT WITHIN REACH. VS ARE WNL AND IS ON RA. THIS NURSE NOTIFIED DR. WILKS ABOUT THIS UPDATE AND ALSO REPORTED THAT THE CHIEF EXECUTIVE IS WORKING ON THE DISCHARGE.
[2023-01-29] MEDS ORDERED: GABA300 PO (15:57)
[2023-01-29] MEDS ORDERED: LEVE500 PO (15:58)
[2023-01-29] MEDS ORDERED: OXYC5 PO (15:59)
[2023-01-29] MEDS ORDERED: MIRALAX17 GM PO (15:59)
[2023-01-29] MEDS ORDERED: LIDO5TO TOP (15:59)
[2023-01-29] MEDS ORDERED: SERT50 PO (16:00)
[2023-01-29] MEDS ORDERED: Promod946 ML PO (16:00)
[2023-01-29] MEDS ORDERED: SEVEC800 PO (16:00)
[2023-01-29 16:08] LABS: ANTIMYELOPEROXIDASE (MPO) ABS <0.2 units (0.0-0.9); ANTIPROTEINASE 3 (PR-3) ABS <0.2 units (0.0-0.9); ATYPICAL PANCA <1:20 titer (Neg:<1:20); CYTOPLASMIC (C-ANCA) <1:20 titer (Neg:<1:20); PERINUCLEAR (P-ANCA) <1:20 titer (Neg:<1:20)
--- NOTE | 2023-01-29 16:23 | NUR ---
DISCHARGE NOTE: PATIENT WAS EDUCATED ON DISCHARGE INSTRUCTIONS. HE VERBALIZED UNDERSTANDING OF INSTRUCTIONS AND HAD NO FURTHER QUESTIONS. HARD PERSCRIPTIONS WERE GIVEN TO HIS SISTER IN LAW. HIS PERSONAL WOUND VAC WAS PLACED AND SUCTIONING ON HIS RIGHT LEG. POWERGLIDE WAS TAKEN OUT AND WNL. PAIN IS MANAGED WITH ORALS. PATIENT HAS A PAPER WITH ALL OF HIS SCHEDULED FOLLOW UPS WITH DR. BOLAND, DR. MONTALVO, [facility] IN [place], WOUND CARE, AND HOME HEALTH. PATIENT WAS ABLE TO SLIDE FROM THE BED TO HIS PERSONAL WHEELCHAIR. PATIENTS PERSONAL ITEMS IN THE ROOM WERE GIVEN TO HIS SISTER IN LAW WELL. HE IS BEING WHEELCHAIRED OUT BY TRANSPORT TO BE TAKEN TO [place] [id number]. PATIENTS OTHER PERSCRIPTIONS WERE FAXED TO [facility] WITH CONFIRMATION FAX STATING IT WAS SENT.
[2023-01-30 15:09] LABS: IMMUNOGLOBULIN A, QN, SERUM 108 mg/dL (90-386); IMMUNOGLOBULIN G, QN, SERUM 938 mg/dL (603-1613); IMMUNOGLOBULIN M, QN, SERUM 101 mg/dL (20-172)
[2023-01-31 11:12] LABS: M-SPIKE, % Not Observed % (Not Observed); PROTEIN,TOTAL,URINE 4.5 mg/dL (Not Estab.)
[2023-02-04 10:08] LABS: CANNABIDIOL Negative (.); TETRAHYDROCANNABINOL(THC) Negative (.)
== END 2023-01-29 16:17 | disposition home or self-care (01) | DRG 907 ==
LOC: ER 08:11 → PCU 13:43 → SURS 13:43 → ICUE 13:43 → SURS 14:49 → ICUE 01-04 10:20 → PCU 01-09 00:06 → SURS 01-18 13:08
PROVIDERS: Family Medicine; Internal Medicine; Internal Medicine Nephrology; Nurse Practitioner Acute Care; Orthopaedic Surgery; Student in an Organized Health Care Education/Training Program; ADMIT Internal Medicine
PROC: 0KNS0ZZ Release Right Lower Leg Muscle, Open Approach (ICD-10-PCS; 2023-01-03)
PROC: 0KNS0ZZ Release Right Lower Leg Muscle, Open Approach (ICD-10-PCS; 2023-01-03)
PROC: 0KNS0ZZ Release Right Lower Leg Muscle, Open Approach (ICD-10-PCS; 2023-01-03)
PROC: 0KNS0ZZ Release Right Lower Leg Muscle, Open Approach (ICD-10-PCS; principal; 2023-01-03 11:15)
PROC: 0KBS0ZZ Excision of Right Lower Leg Muscle, Open Approach (ICD-10-PCS; 2023-01-05)
PROC: 30233N1 Transfusion of Nonautologous Red Blood Cells into Peripheral Vein, Percutaneous Approach (ICD-10-PCS; 2023-01-05)
PROC: 30233J1 Transfusion of Nonautologous Serum Albumin into Peripheral Vein, Percutaneous Approach (ICD-10-PCS; 2023-01-07)
PROC: 0JH63XZ Insertion of Tunneled Vascular Access Device into Chest Subcutaneous Tissue and Fascia, Percutaneous Approach (ICD-10-PCS; 2023-01-09)
PROC: 02HV33Z Insertion of Infusion Device into Superior Vena Cava, Percutaneous Approach (ICD-10-PCS; 2023-01-09)
PROC: B518ZZA Fluoroscopy of Superior Vena Cava, Guidance (ICD-10-PCS; 2023-01-09)
PROC: B548ZZA Ultrasonography of Superior Vena Cava, Guidance (ICD-10-PCS; 2023-01-09)
PROC: 5A1D70Z Performance of Urinary Filtration, Intermittent, Less than 6 Hours Per Day (ICD-10-PCS; 2023-01-11)
PROC: 0Y3H0ZZ Control Bleeding in Right Lower Leg, Open Approach (ICD-10-PCS; 2023-01-14)
DX: T79.A21A Traumatic compartment syndrome of right lower extremity, initial encounter (principal); N17.0 Acute kidney failure with tubular necrosis; E87.21 Acute metabolic acidosis; D62 Acute posthemorrhagic anemia; E87.1 Hypo-osmolality and hyponatremia; M62.82 Rhabdomyolysis; F41.9 Anxiety disorder, unspecified; F32.A Depression, unspecified; N18.9 Chronic kidney disease, unspecified; R94.5 Abnormal results of liver function studies; E87.5 Hyperkalemia; R74.01 Elevation of levels of liver transaminase levels; F12.10 Cannabis abuse, uncomplicated; G40.409 Other generalized epilepsy and epileptic syndromes, not intractable, without status epilepticus; W19.XXXA Unspecified fall, initial encounter; F10.90 Alcohol use, unspecified, uncomplicated; E87.70 Fluid overload, unspecified; E83.39 Other disorders of phosphorus metabolism; E88.09 Other disorders of plasma-protein metabolism, not elsewhere classified; E87.6 Hypokalemia; E83.52 Hypercalcemia; Z98.890 Other specified postprocedural states; Z79.899 Other long term (current) drug therapy; Z79.891 Long term (current) use of opiate analgesic
CPT/HCPCS: 36245; 36415; 36430; 36556; 70450; 71045; 72100; 72170; 73590; 75625; 75716; 75774; 76705; 76770; 76937; 80048; 80053; 80069; 80074; 81001; 82164; 82248; 82272; 82300; 82330; 82397; 82550; 82945; 82947; 83516; 83520; 83655; 83735; 83825; 83970; 84100; 84132; 84156; 84157; 84166; 85014; 85018; 85025; 85610; 85651; 85730; 86037; 86038; 86140; 86317; 86334; 86335; 86850; 86870; 86880; 86900; 86901; 86920; 86922; 86923; 87040; 87070; 87075; 87205; 89051; 89060; 93925; 93926; 94760; 94762; 97110; 97162; 97166; 97530; 97535; 99152; 99153; 99284-25; A9270; C1750; C1751; C1752; C1760; C1769; C1887; C1894; J0295; J0630; J0690; J0881; J1100; J1170; J1200; J1644; J1815; J1885; J1953; J2060; J2250; J2405; J2704; J2930; J3010; J3470; J7030; J7040; J7050; J7120; J7131; P9016; P9046; P9047; Q0167; Q0177; Q9967

== ENCOUNTER 2023-02-07 11:10 | Day surgery (SDC) | payer BC, OTHER ==
[~2023-02-07 11:10] MED LIST changes: +ACET500 PO; +GABA300 PO; +LEVE500 PO; +LIDO5TO TOP; +MIRALAX17 GM PO; +Promod946 ML PO; +SERT50 PO; +SEVEC800 PO
== END 2023-02-07 23:06 | disposition home or self-care (01) ==
LOC: WOUND 11:10
DX: S81.801D Unspecified open wound, right lower leg, subsequent encounter (principal); X58.XXXD Exposure to other specified factors, subsequent encounter; M79.A21 Nontraumatic compartment syndrome of right lower extremity

== ENCOUNTER 2023-02-11 00:35 | Day surgery (SDC) | payer BC, OTHER | END 2023-02-11 23:00 | disposition home or self-care (01) | LOC: WOUND 00:35 | DX: S81.801D Unspecified open wound, right lower leg, subsequent encounter (principal); X58.XXXD Exposure to other specified factors, subsequent encounter; M79.A29 Nontraumatic compartment syndrome of unspecified lower extremity | CPT/HCPCS: G0463 ==

== ENCOUNTER 2023-02-23 18:33 | Emergency (ER) | payer BC, OTHER ==
[~2023-02-23] VITALS: Ht 175.3 cm; Wt 63.5 kg
[2023-02-23] MEDS ORDERED: JUVEN PACKET1 EAC3 PO (18:58)
[2023-02-23 19:01] LABS: BASOPHILS ABSOLUTE AUTO 0.04 K/mm3 (0.00-0.23); BASOPHILS PERCENT AUTO 0 % (0-2); EOSINOPHILS ABSOLUTE AUTO 0.17 K/mm3 (0.00-0.68); EOSINOPHILS PERCENT AUTO 2 % (0-6); Hematocrit 29.8 % (37.0-53.0); Hemoglobin 10.4 g/dL (13.5-17.5); IMMATURE GRAN ABSOLUTE AUTO 0.02 K/mm3 (0.00-0.10); IMMATURE GRAN PERCENT AUTO 0 % (0-1); LYMPHOCYTES ABSOLUTE AUTO 3.35 K/mm3 (0.84-5.20); LYMPHOCYTES PERCENT AUTO 35 % (21-46); MONOCYTES ABSOLUTE AUTO 1.14 K/mm3 (0.16-1.47); MONOCYTES PERCENT AUTO 12 % (4-13); Mean Corpuscular HGB 31.7 pg (26.0-34.0); Mean Corpuscular HGB Conc 34.9 g/dL (31.5-36.5); Mean Corpuscular Volume 91 fL (80-100); Mean Platelet Volume 9.2 fL (9.1-12.4); NEUTROPHILS ABSOLUTE AUTO 4.91 K/mm3 (1.96-9.15); NEUTROPHILS PERCENT AUTO 51 % (41-73); Platelet Count 353 K/mm3 (150-400); RDW Coefficient Variation 13.2 % (11.7-14.2); RDW Standard Deviation 44.1 fL (35.1-46.3); Red Blood Cell Count 3.28 M/mm3 (4.30-5.90); White Blood Cell Count 9.63 K/mm3 (4.00-11.30)
[2023-02-23] MEDS ORDERED: OXYCODONE-ACET1 EAC2 PO (19:01)
[2023-02-23] MEDS ORDERED: Percocet 5-3251 EACH PO (19:02)
[2023-02-23 19:22] LABS: Albumin, Blood 3.9 g/dL (3.4-5.0); Albumin/Globulin Ratio 1.1 (0.8-1.8); Bilirubin, Total 0.2 mg/dL (0.1-1.0); Bun/Creatinine Ratio 18.5 (12.0-20.0); Creatinine, Blood 1.08 mg/dL (0.60-1.20); Globulin, Blood 3.7 g/dL (2.2-4.0); Potassium, Blood 4.3 mmol/L (3.5-5.5); Total Protein, Blood 7.6 g/dL (6.4-8.2)
[2023-02-24 01:40] VITALS: BP 122/76
== END 2023-02-24 01:40 | disposition home or self-care (01) ==
LOC: ER 18:33
PROVIDERS: Emergency Medicine
DX: G40.909 Epilepsy, unspecified, not intractable, without status epilepticus (principal); R41.82 Altered mental status, unspecified; R00.0 Tachycardia, unspecified; F17.200 Nicotine dependence, unspecified, uncomplicated
CPT/HCPCS: 71045; 71260; 80053; 83605; 85025; 96360; 96361; 99285-25; J7030; Q9967

== ENCOUNTER 2023-02-25 02:02 | Day surgery (SDC) | payer BC, OTHER ==
[~2023-02-25 02:02] MED LIST changes: +JUVEN PACKET1 EAC3 PO; +OXYCODONE-ACET1 EAC2 PO; +Percocet 5-3251 EACH PO
== END 2023-02-25 22:53 | disposition home or self-care (01) ==
LOC: WOUND 02:02
DX: T81.30XA Disruption of wound, unspecified, initial encounter (principal); S81.801D Unspecified open wound, right lower leg, subsequent encounter; M79.A29 Nontraumatic compartment syndrome of unspecified lower extremity
CPT/HCPCS: G0463

== ENCOUNTER 2023-03-04 03:05 | Day surgery (SDC) | payer BC, OTHER | END 2023-03-05 23:03 | disposition home or self-care (01) | LOC: WOUND 03:05 | DX: T81.30XD Disruption of wound, unspecified, subsequent encounter (principal); M79.A29 Nontraumatic compartment syndrome of unspecified lower extremity; S81.801D Unspecified open wound, right lower leg, subsequent encounter | CPT/HCPCS: G0463 ==

== ENCOUNTER 2023-03-08 03:03 | Day surgery (SDC) | payer BC, OTHER | END 2023-03-08 23:44 | disposition home or self-care (01) | LOC: WOUND 03:03 | DX: M79.A29 Nontraumatic compartment syndrome of unspecified lower extremity (principal); S81.801D Unspecified open wound, right lower leg, subsequent encounter; X58.XXXD Exposure to other specified factors, subsequent encounter | CPT/HCPCS: G0463 ==

== ENCOUNTER 2023-03-11 02:21 | Day surgery (SDC) | payer BC, OTHER | END 2023-03-11 22:52 | disposition home or self-care (01) | LOC: WOUND 02:21 | DX: M79.A29 Nontraumatic compartment syndrome of unspecified lower extremity (principal); T81.30XD Disruption of wound, unspecified, subsequent encounter; S81.801D Unspecified open wound, right lower leg, subsequent encounter; G40.909 Epilepsy, unspecified, not intractable, without status epilepticus; Y83.8 Other surgical procedures as the cause of abnormal reaction of the patient, or of later complication, without mention of misadventure at the time of the procedure; X58.XXXD Exposure to other specified factors, subsequent encounter | CPT/HCPCS: G0463 ==

== ENCOUNTER 2023-03-13 04:44 | Day surgery (SDC) | payer BC, OTHER | END 2023-03-13 23:30 | disposition home or self-care (01) | LOC: HBO 04:44 | DX: M79.A29 Nontraumatic compartment syndrome of unspecified lower extremity (principal); S81.801D Unspecified open wound, right lower leg, subsequent encounter; X58.XXXD Exposure to other specified factors, subsequent encounter | CPT/HCPCS: G0277 ==

== ENCOUNTER 2023-03-13 04:49 | Day surgery (SDC) | payer BC, OTHER | END 2023-03-13 23:31 | disposition home or self-care (01) | LOC: WOUND 04:49 | DX: M79.A29 Nontraumatic compartment syndrome of unspecified lower extremity (principal); S81.801D Unspecified open wound, right lower leg, subsequent encounter; X58.XXXD Exposure to other specified factors, subsequent encounter | CPT/HCPCS: G0463 ==

== ENCOUNTER 2023-03-14 04:03 | Day surgery (SDC) | payer BC, OTHER | END 2023-03-14 22:46 | disposition home or self-care (01) | LOC: HBO 04:03 | DX: M79.A29 Nontraumatic compartment syndrome of unspecified lower extremity (principal); S81.801D Unspecified open wound, right lower leg, subsequent encounter; X58.XXXD Exposure to other specified factors, subsequent encounter | CPT/HCPCS: G0277 ==

== ENCOUNTER 2023-03-14 04:05 | Day surgery (SDC) | payer BC, OTHER | END 2023-03-14 22:47 | disposition home or self-care (01) | LOC: HBO 04:05 | DX: M79.A29 Nontraumatic compartment syndrome of unspecified lower extremity (principal); S81.801D Unspecified open wound, right lower leg, subsequent encounter; X58.XXXD Exposure to other specified factors, subsequent encounter | CPT/HCPCS: G0277 ==

== ENCOUNTER 2023-03-15 05:06 | Day surgery (SDC) | payer BC, OTHER | END 2023-03-15 22:52 | disposition home or self-care (01) | LOC: WOUND 05:06 | DX: S81.801D Unspecified open wound, right lower leg, subsequent encounter (principal); M79.A21 Nontraumatic compartment syndrome of right lower extremity | CPT/HCPCS: A9270; G0463 ==

== ENCOUNTER 2023-03-20 02:07 | Day surgery (SDC) | payer BC, OTHER | END 2023-03-20 22:54 | disposition home or self-care (01) | LOC: WOUND 02:07 | DX: M79.A29 Nontraumatic compartment syndrome of unspecified lower extremity (principal); S81.801D Unspecified open wound, right lower leg, subsequent encounter; X58.XXXD Exposure to other specified factors, subsequent encounter | CPT/HCPCS: G0463 ==

== ENCOUNTER 2023-03-22 01:59 | Day surgery (SDC) | payer BC, OTHER | END 2023-03-22 22:50 | disposition home or self-care (01) | LOC: WOUND | DX: T81.30XA Disruption of wound, unspecified, initial encounter (principal); M79.A29 Nontraumatic compartment syndrome of unspecified lower extremity; S81.801D Unspecified open wound, right lower leg, subsequent encounter | CPT/HCPCS: G0463 ==

== ENCOUNTER 2023-03-25 00:51 | Day surgery (SDC) | payer BC, OTHER | END 2023-03-25 22:50 | disposition home or self-care (01) | LOC: WOUND 00:51 | DX: M79.A29 Nontraumatic compartment syndrome of unspecified lower extremity (principal); G40.909 Epilepsy, unspecified, not intractable, without status epilepticus; T81.30XD Disruption of wound, unspecified, subsequent encounter; Y83.8 Other surgical procedures as the cause of abnormal reaction of the patient, or of later complication, without mention of misadventure at the time of the procedure | CPT/HCPCS: G0463 ==

== ENCOUNTER 2023-03-27 06:14 | Day surgery (SDC) | payer BC, OTHER | END 2023-03-27 23:02 | disposition home or self-care (01) | LOC: WOUND | DX: Z48.00 Encounter for change or removal of nonsurgical wound dressing (principal); S81.801D Unspecified open wound, right lower leg, subsequent encounter | CPT/HCPCS: G0463 ==

== ENCOUNTER 2023-03-29 02:33 | Day surgery (SDC) | payer BC, OTHER | END 2023-03-29 22:37 | disposition home or self-care (01) | LOC: WOUND | DX: M79.A29 Nontraumatic compartment syndrome of unspecified lower extremity (principal) | CPT/HCPCS: G0463 ==

== ENCOUNTER 2023-04-01 02:59 | Day surgery (SDC) | payer BC, OTHER ==
[2023-04-02] MEDS ORDERED: NEURONTIN300 MG PO (18:38)
== END 2023-04-01 23:03 | disposition home or self-care (01) ==
LOC: WOUND
DX: T81.30XD Disruption of wound, unspecified, subsequent encounter (principal); G40.909 Epilepsy, unspecified, not intractable, without status epilepticus; M79.A29 Nontraumatic compartment syndrome of unspecified lower extremity; S81.801D Unspecified open wound, right lower leg, subsequent encounter
CPT/HCPCS: A9270; G0463

== ENCOUNTER 2023-04-02 15:24 | Emergency (ER) | payer BC, OTHER ==
[~2023-04-02] VITALS: Ht 175.3 cm; Wt 68.0 kg
[2023-04-02 15:33] VITALS: BP 115/76
[2023-04-02 16:00] LABS: BASOPHILS ABSOLUTE AUTO 0.03 K/mm3 (0.00-0.23); BASOPHILS PERCENT AUTO 0 % (0-2); EOSINOPHILS ABSOLUTE AUTO 0.17 K/mm3 (0.00-0.68); EOSINOPHILS PERCENT AUTO 2 % (0-6); Hematocrit 33.3 % (37.0-53.0); Hemoglobin 12.3 g/dL (13.5-17.5); IMMATURE GRAN ABSOLUTE AUTO 0.02 K/mm3 (0.00-0.10); IMMATURE GRAN PERCENT AUTO 0 % (0-1); LYMPHOCYTES ABSOLUTE AUTO 2.07 K/mm3 (0.84-5.20); LYMPHOCYTES PERCENT AUTO 23 % (21-46); MONOCYTES ABSOLUTE AUTO 0.94 K/mm3 (0.16-1.47); MONOCYTES PERCENT AUTO 11 % (4-13); Mean Corpuscular HGB 33.7 pg (26.0-34.0); Mean Corpuscular HGB Conc 36.9 g/dL (31.5-36.5); Mean Corpuscular Volume 91 fL (80-100); Mean Platelet Volume 10.1 fL (9.1-12.4); NEUTROPHILS ABSOLUTE AUTO 5.61 K/mm3 (1.96-9.15); NEUTROPHILS PERCENT AUTO 64 % (41-73); Platelet Count 286 K/mm3 (150-400); RDW Coefficient Variation 12.9 % (11.7-14.2); RDW Standard Deviation 43.4 fL (35.1-46.3); Red Blood Cell Count 3.65 M/mm3 (4.30-5.90); White Blood Cell Count 8.84 K/mm3 (4.00-11.30)
[2023-04-02 16:24] LABS: Albumin, Blood 3.8 g/dL (3.4-5.0); Bilirubin, Total 0.4 mg/dL (0.1-1.0); Bun/Creatinine Ratio 20.9 (12.0-20.0); Calcium, Blood 9.7 mg/dL (8.5-10.1); Creatinine, Blood 1.1 mg/dL (0.60-1.20); Globulin, Blood 3.7 g/dL (2.2-4.0); Potassium, Blood 4.2 mmol/L (3.5-5.5); Total Protein, Blood 7.5 g/dL (6.4-8.2)
[2023-04-02] MEDS ORDERED: NEURONTIN300 MG PO (18:38)
== END 2023-04-02 19:00 | disposition left against medical advice (07) ==
LOC: ER 15:24
PROVIDERS: Student in an Organized Health Care Education/Training Program
DX: R40.0 Somnolence (principal); Z53.21 Procedure and treatment not carried out due to patient leaving prior to being seen by health care provider
CPT/HCPCS: 80053; 85025; 99282

== ENCOUNTER 2023-04-03 03:18 | Emergency (ER) | payer BC, OTHER ==
[~2023-04-03] VITALS: Ht 182.9 cm; Wt 77.1 kg
[~2023-04-03 03:18] MED LIST changes: +NEURONTIN300 MG PO
[2023-04-03 04:50] LABS: BASOPHILS ABSOLUTE AUTO 0.03 K/mm3 (0.00-0.23); BASOPHILS PERCENT AUTO 0 % (0-2); EOSINOPHILS ABSOLUTE AUTO 0.01 K/mm3 (0.00-0.68); EOSINOPHILS PERCENT AUTO 0 % (0-6); Hematocrit 33.1 % (37.0-53.0); IMMATURE GRAN ABSOLUTE AUTO 0.06 K/mm3 (0.00-0.10); IMMATURE GRAN PERCENT AUTO 0 % (0-1); LYMPHOCYTES ABSOLUTE AUTO 1.54 K/mm3 (0.84-5.20); LYMPHOCYTES PERCENT AUTO 11 % (21-46); MONOCYTES ABSOLUTE AUTO 1.12 K/mm3 (0.16-1.47); MONOCYTES PERCENT AUTO 8 % (4-13); Mean Corpuscular HGB 33.8 pg (26.0-34.0); Mean Corpuscular HGB Conc 36.3 g/dL (31.5-36.5); Mean Corpuscular Volume 93 fL (80-100); Mean Platelet Volume 10.2 fL (9.1-12.4); NEUTROPHILS ABSOLUTE AUTO 11.66 K/mm3 (1.96-9.15); NEUTROPHILS PERCENT AUTO 81 % (41-73); Platelet Count 269 K/mm3 (150-400); RDW Coefficient Variation 13.1 % (11.7-14.2); RDW Standard Deviation 44.8 fL (35.1-46.3); Red Blood Cell Count 3.55 M/mm3 (4.30-5.90); White Blood Cell Count 14.42 K/mm3 (4.00-11.30)
[2023-04-03 05:34] LABS: Ethanol (Alcohol), Blood, Med <3 mg/dL
[2023-04-03 05:37] LABS: Acetaminophen, Random <2.0 ug/mL (10.0-30.0); Alanine Aminotransfer (ALT/SGP 73 U/L (12-78); Albumin, Blood 4.1 g/dL (3.4-5.0); Albumin/Globulin Ratio 1.1 (0.8-1.8); Alk Phos 86 U/L (50-136); Anion Gap 4 mmol/L (6-16); Aspartate Aminotrans (AST/SGOT 50 U/L (12-37); Bilirubin, Total 0.6 mg/dL (0.1-1.0); Blood Urea Nitrogen 23 mg/dL (8-24); Bun/Creatinine Ratio 26.7 (12.0-20.0); CO2, Blood 27 mmol/L (21-32); Calcium, Blood 9.9 mg/dL (8.5-10.1); Chloride, Blood 112 mmol/L (98-108); Creatinine, Blood 0.86 mg/dL (0.60-1.20); Globulin, Blood 3.8 g/dL (2.2-4.0); Glomerular Filtration Rate 113 (60-); Glucose, Blood 114 mg/dL (70-99); Sodium, Blood 143 mmol/L (136-145); Total Protein, Blood 7.9 g/dL (6.4-8.2)
[2023-04-03 08:32] LABS: U Amphetamine Screen Not Detected; U Barbituate Screen Not Detected; U Benzodiazapine Screen DETECTED; U Buprenorphine Screen Not Detected; U Cannabinoids Screen DETECTED; U Cocaine Screen Not Detected; U Methadone Screen Not Detected; U Methamphetamine Screen Not Detected; U Opiates Screen Not Detected; U Oxycodone Screen DETECTED; U Phencyclidine Screen Not Detected
[2023-04-03 13:53] VITALS: BP 120/82
== END 2023-04-03 14:18 ==
LOC: ER 03:18
PROVIDERS: Emergency Medicine
DX: R40.0 Somnolence (principal); Z79.899 Other long term (current) drug therapy; F17.200 Nicotine dependence, unspecified, uncomplicated
CPT/HCPCS: 51701; 73630; 80053; 82140; 83605; 83690; 84443; 85025; 93005; 93010; 96361-59; 96365-59; 96375-59; 99285-25; A9270; G0480; J0696; J1885; J7030

== ENCOUNTER 2023-04-10 01:55 | Day surgery (SDC) | payer BC, OTHER | END 2023-04-10 22:38 | disposition home or self-care (01) | LOC: WOUND 01:55 | DX: S81.801D Unspecified open wound, right lower leg, subsequent encounter (principal); M79.A29 Nontraumatic compartment syndrome of unspecified lower extremity | CPT/HCPCS: G0463 ==

== ENCOUNTER 2023-04-12 03:46 | Day surgery (SDC) | payer BC, OTHER | END 2023-04-12 22:51 | disposition home or self-care (01) | LOC: WOUND 03:46 | DX: Z48.00 Encounter for change or removal of nonsurgical wound dressing (principal); S81.801D Unspecified open wound, right lower leg, subsequent encounter | CPT/HCPCS: G0463 ==

== ENCOUNTER 2023-04-15 03:55 | Day surgery (SDC) | payer BC, OTHER ==
[2023-04-15] MEDS ORDERED: Triamcinolone Acet 0.1% Cream 15 gm ONE (14:18)
[2023-04-15] MEDS ORDERED: Lidocaine HCl 4% Topical Soln 50 ML BTL ONE (14:18)
== END 2023-04-15 22:52 | disposition home or self-care (01) ==
LOC: WOUND 03:55
DX: T81.30XD Disruption of wound, unspecified, subsequent encounter (principal); G40.909 Epilepsy, unspecified, not intractable, without status epilepticus; M79.A29 Nontraumatic compartment syndrome of unspecified lower extremity; S81.801D Unspecified open wound, right lower leg, subsequent encounter
CPT/HCPCS: A9270; G0463

== ENCOUNTER 2023-04-17 02:17 | Day surgery (SDC) | payer BC, OTHER | END 2023-04-17 22:48 | disposition home or self-care (01) | LOC: WOUND 02:17 | DX: M79.A29 Nontraumatic compartment syndrome of unspecified lower extremity (principal); S81.801D Unspecified open wound, right lower leg, subsequent encounter; X58.XXXD Exposure to other specified factors, subsequent encounter | CPT/HCPCS: A9270; G0463 ==

== ENCOUNTER 2023-04-19 03:06 | Day surgery (SDC) | payer BC, OTHER | END 2023-04-19 23:12 | disposition home or self-care (01) | LOC: WOUND 03:06 | DX: M79.A29 Nontraumatic compartment syndrome of unspecified lower extremity (principal); S81.801D Unspecified open wound, right lower leg, subsequent encounter | CPT/HCPCS: G0463 ==

== ENCOUNTER 2023-04-24 00:11 | Emergency (ER) | payer BC, OTHER ==
[~2023-04-24] VITALS: Ht 175.3 cm; Wt 68.0 kg
[2023-04-24] MEDS ORDERED: METO50ER PO (00:29)
[2023-04-24 01:30] VITALS: BP 123/88
== END 2023-04-24 01:40 | disposition home or self-care (01) ==
LOC: ER 00:11
DX: S80.11XA Contusion of right lower leg, initial encounter (principal); N39.0 Urinary tract infection, site not specified; W22.8XXA Striking against or struck by other objects, initial encounter; Z79.899 Other long term (current) drug therapy
CPT/HCPCS: 73590; 99283-25; A9270

== ENCOUNTER 2023-04-26 04:08 | Day surgery (SDC) | payer BC, OTHER ==
[~2023-04-26 04:08] MED LIST changes: +METO50ER PO
== END 2023-04-26 22:45 | disposition home or self-care (01) ==
LOC: WOUND 04:08
DX: M79.A29 Nontraumatic compartment syndrome of unspecified lower extremity (principal); S81.801D Unspecified open wound, right lower leg, subsequent encounter; I73.9 Peripheral vascular disease, unspecified
CPT/HCPCS: G0463

== ENCOUNTER 2023-04-29 08:45 | Day surgery (SDC) | payer BC, OTHER | END 2023-04-29 22:55 | disposition home or self-care (01) | LOC: WOUND 08:45 | DX: T81.30XD Disruption of wound, unspecified, subsequent encounter (principal); S81.801D Unspecified open wound, right lower leg, subsequent encounter; M79.A9 Nontraumatic compartment syndrome of other sites | CPT/HCPCS: A9270; G0463 ==

== ENCOUNTER 2023-05-01 01:42 | Day surgery (SDC) | payer BC, OTHER | END 2023-05-01 22:53 | disposition home or self-care (01) | LOC: WOUND 01:42 | DX: M79.A29 Nontraumatic compartment syndrome of unspecified lower extremity (principal); S81.801D Unspecified open wound, right lower leg, subsequent encounter; X58.XXXD Exposure to other specified factors, subsequent encounter | CPT/HCPCS: G0463 ==

== ENCOUNTER 2023-05-03 03:11 | Day surgery (SDC) | payer BC, OTHER | END 2023-05-04 00:06 | disposition home or self-care (01) | LOC: WOUND 03:11 | DX: S81.801D Unspecified open wound, right lower leg, subsequent encounter (principal); X58.XXXD Exposure to other specified factors, subsequent encounter | CPT/HCPCS: A9270; G0463 ==

== ENCOUNTER 2023-05-06 22:39 | Emergency (ER) | payer BC, OTHER ==
[~2023-05-06] VITALS: Ht 175.3 cm; Wt 68.0 kg
[2023-05-07 01:30] VITALS: BP 131/93
[2023-05-07] MEDS ORDERED: LORAZEPAM0.5 MG (02:09)
[2023-05-07] MEDS ORDERED: LIDO5TO (02:10)
[2023-05-07] MEDS ORDERED: OXYC10TA19 (02:11)
[2023-05-07] MEDS ORDERED: ZOLOFT50 MG (02:12)
[2023-05-07] MEDS ORDERED: METOPROLOL SUCCINATE (02:12)
[2023-05-07] MEDS ORDERED: LEVE500 (02:13)
== END 2023-05-07 01:34 | disposition home or self-care (01) ==
LOC: ER 22:39
DX: M79.661 Pain in right lower leg (principal); G89.29 Other chronic pain; M79.A21 Nontraumatic compartment syndrome of right lower extremity; N18.6 End stage renal disease; Z79.891 Long term (current) use of opiate analgesic; Z79.899 Other long term (current) drug therapy
CPT/HCPCS: 99283; A9270

== ENCOUNTER 2023-05-08 05:15 | Day surgery (SDC) | payer BC, OTHER ==
[~2023-05-08 05:15] MED LIST changes: +LEVE500; +LIDO5TO; +LORAZEPAM0.5 MG; +METOPROLOL SUCCINATE; +OXYC10TA19; +ZOLOFT50 MG
== END 2023-05-08 22:54 | disposition home or self-care (01) ==
LOC: WOUND 05:15
DX: S81.801D Unspecified open wound, right lower leg, subsequent encounter (principal); M79.A29 Nontraumatic compartment syndrome of unspecified lower extremity
CPT/HCPCS: A9270; G0463

== ENCOUNTER 2023-05-10 03:16 | Day surgery (SDC) | payer BC, OTHER | END 2023-05-10 22:37 | disposition home or self-care (01) | LOC: WOUND 03:16 | DX: M79.A29 Nontraumatic compartment syndrome of unspecified lower extremity (principal); S81.801D Unspecified open wound, right lower leg, subsequent encounter; X58.XXXD Exposure to other specified factors, subsequent encounter | CPT/HCPCS: A9270; G0463 ==

== ENCOUNTER 2023-05-15 03:05 | Day surgery (SDC) | payer BC, OTHER | END 2023-05-15 22:48 | disposition home or self-care (01) | LOC: WOUND 03:05 | DX: M79.A29 Nontraumatic compartment syndrome of unspecified lower extremity (principal) | CPT/HCPCS: G0463 ==

== ENCOUNTER 2023-05-17 03:08 | Day surgery (SDC) | payer BC, OTHER | END 2023-05-17 23:03 | disposition home or self-care (01) | LOC: WOUND 03:08 | DX: M79.A29 Nontraumatic compartment syndrome of unspecified lower extremity (principal); S81.801D Unspecified open wound, right lower leg, subsequent encounter; X58.XXXD Exposure to other specified factors, subsequent encounter | CPT/HCPCS: G0463 ==

== ENCOUNTER 2024-01-12 12:23 | Emergency (ER) | payer BC, OTHER ==
[~2024-01-12] VITALS: Ht 175.3 cm; Wt 79.4 kg
[~2024-01-12 12:23] MED LIST changes: -ZOLOFT50 MG; +ZOLOFT50 MG PO
[2024-01-12 13:12] LABS: BASOPHILS ABSOLUTE AUTO 0.05 K/mm3 (0.00-0.23); BASOPHILS PERCENT AUTO 0 % (0-2); EOSINOPHILS ABSOLUTE AUTO 0.12 K/mm3 (0.00-0.68); EOSINOPHILS PERCENT AUTO 1 % (0-6); Hematocrit 44.1 % (37.0-53.0); Hemoglobin 16.1 g/dL (13.5-17.5); IMMATURE GRAN ABSOLUTE AUTO 0.03 K/mm3 (0.00-0.10); IMMATURE GRAN PERCENT AUTO 0 % (0-1); LYMPHOCYTES ABSOLUTE AUTO 2.95 K/mm3 (0.84-5.20); LYMPHOCYTES PERCENT AUTO 26 % (21-46); MONOCYTES ABSOLUTE AUTO 1.16 K/mm3 (0.16-1.47); MONOCYTES PERCENT AUTO 10 % (4-13); Mean Corpuscular HGB 34.3 pg (26.0-34.0); Mean Corpuscular HGB Conc 36.5 g/dL (31.5-36.5); Mean Corpuscular Volume 94 fL (80-100); Mean Platelet Volume 10.3 fL (9.1-12.4); NEUTROPHILS ABSOLUTE AUTO 7.02 K/mm3 (1.96-9.15); NEUTROPHILS PERCENT AUTO 62 % (41-73); Platelet Count 268 K/mm3 (150-400); RDW Standard Deviation 37.7 fL (35.1-46.3); Red Blood Cell Count 4.69 M/mm3 (4.30-5.90); White Blood Cell Count 11.33 K/mm3 (4.00-11.30)
[2024-01-12 13:30] LABS: Albumin, Blood 4.5 g/dL (3.4-5.0); Albumin/Globulin Ratio 1.1 (0.8-1.8); Bilirubin, Total 0.7 mg/dL (0.1-1.0); Bun/Creatinine Ratio 12.2 (12.0-20.0); Calcium, Blood 9.4 mg/dL (8.5-10.1); Creatinine, Blood 1.15 mg/dL (0.60-1.20); Globulin, Blood 4.1 g/dL (2.2-4.0); Potassium, Blood 3.5 mmol/L (3.5-5.5); Total Protein, Blood 8.6 g/dL (6.4-8.2)
[2024-01-12] MEDS ORDERED: OXYC5 PO (13:51)
[2024-01-12] MEDS ORDERED: SOFOSBUVIR-VEL1 EAC1 PO (13:52)
[2024-01-12] MEDS ORDERED: FUROSEMIDE20 MG PO (13:52)
[2024-01-12] MEDS ORDERED: NEURONTIN300 MG (13:52)
[2024-01-12] MEDS ORDERED: LOSARTAN POTASS25 M2 PO (13:52)
[2024-01-12 13:59] LABS: Source, Urine Clean Catch
[2024-01-12 14:03] LABS: Appearance, Urine Clear (Clear); Bilirubin, Urine Neg (Neg); Blood, Urine Neg (Neg); Color, Urine Yellow (P-Yellow); Glucose Qualitative, Urine Neg (Neg); Ketones, Urine Neg (Neg); Leukocyte Esterase, Urine Neg (Neg); Nitrite, Urine Neg (Neg); Protein, Urine Neg (Neg); Specific Gravity, Urine 1.015 (1.003-1.022); Urobilinogen, Urine NORM (Normal)
[2024-01-12] MEDS ORDERED: Lactated Ringer's 1,000 ML IV ONE (14:50)
[2024-01-12 16:30] LABS: U Amphetamine Screen Not Detected; U Barbituate Screen Not Detected; U Benzodiazapine Screen DETECTED; U Buprenorphine Screen Not Detected; U Cannabinoids Screen DETECTED; U Cocaine Screen Not Detected; U Methadone Screen Not Detected; U Methamphetamine Screen Not Detected; U Opiates Screen DETECTED; U Oxycodone Screen DETECTED; U Phencyclidine Screen Not Detected
[2024-01-12 17:38] VITALS: BP 107/78
== END 2024-01-12 18:36 | disposition home or self-care (01) ==
LOC: ER 12:23
PROVIDERS: Physician Assistant
DX: T40.601A Poisoning by unspecified narcotics, accidental (unintentional), initial encounter (principal); T42.4X1A Poisoning by benzodiazepines, accidental (unintentional), initial encounter; T40.721A Poisoning by synthetic cannabinoids, accidental (unintentional), initial encounter; T40.2X1A Poisoning by other opioids, accidental (unintentional), initial encounter; R41.82 Altered mental status, unspecified; F17.200 Nicotine dependence, unspecified, uncomplicated; Z79.899 Other long term (current) drug therapy
CPT/HCPCS: 80053; 81003; 82140; 84443; 85025; 96360; 99284-25; J7120

== ENCOUNTER 2024-04-17 08:46 | Day surgery (SDC) | payer BC, OTHER ==
[~2024-04-17] VITALS: Ht 175.3 cm; Wt 73.8 kg
[~2024-04-17 08:46] MED LIST changes: +FUROSEMIDE20 MG PO; +LOSARTAN POTASS25 M2 PO; +Lactated Ringer's 1,000 ML IV ONE; +NEURONTIN300 MG; +Ropivacaine 0.5% HCL/PF 5 MG/ML 30ML Vial ONE; +SOFOSBUVIR-VEL1 EAC1 PO
[2024-04-17] MEDS ORDERED: CeFAZolin Sodium 2,000 MG VIAL ONE (09:13)
[2024-04-17] MEDS ORDERED: Lactated Ringer's 1,000 ML IV ONE (09:40)
[2024-04-17] MEDS ORDERED: propofoL 20 ML IV ONE (09:45)
[2024-04-17] MEDS ORDERED: Midazolam HCl 1MG / ML 2ML Vial ONE (09:45)
[2024-04-17] MEDS ORDERED: FentaNYL Citrate 50 MCG/ML 2 ML Injection ONE ×2 (09:45→12:11)
[2024-04-17] MEDS ORDERED: Dexamethasone Sod Phos 10 MG/ML 1ML VIAL ONE (10:42)
[2024-04-17] MEDS ORDERED: Ondansetron HCl 2 MG / ML 2ML Vial ONE (10:42)
[2024-04-17] MEDS ORDERED: Ketorolac Tromethamine 30mg Vial ONE (10:42)
[2024-04-17] MEDS ORDERED: OxyCODONE 5 mg/Acetamin 325 mg TABLET ONE ×2 (11:34→12:11)
--- NOTE | 2024-04-17 11:41 | NUR ---
04/17/24 1141 Ross JorgensenET 5/325MG GIVEN PO AT 1140 FOR RIGHT FOOT PAIN AT 6
--- NOTE | 2024-04-17 12:23 | NUR ---
04/17/24 1223 Maggie Shetty REPORT RECIEVED FROM NURSE BAKER AT 1210. UPON ASSESSING PT, PT STATED PAIN WAS INCREASING 11/19. RN ADMINISTERED ADDITIONAL PO PAIN PILL WELL IV FENTANYL PER 'S ORDERS. ICE BEHIND RIGHT KNEE, OP LEG ELEVATED IN RECLINER WITH PILLOW. VSS. CALL LIGHT IN REACH. BEVERAGE IN REACH. WARM BLANKET PROVIDED. PT'S RIDE IS ON THE WAY FOR PARAEDUCATOR. RN WILL CONTINUE TO MONITOR AND ASSESS PT'S PAIN.
[2024-04-17 12:36] VITALS: BP 121/78
== END 2024-04-17 12:50 | disposition home or self-care (01) ==
LOC: ORSCSDS 08:46
PROVIDERS: Podiatrist Foot & Ankle Surgery
PROC: 0SGP04Z Fusion of Right Toe Phalangeal Joint with Internal Fixation Device, Open Approach (ICD-10-PCS; principal; 2024-04-17 10:45)
DX: M20.41 Other hammer toe(s) (acquired), right foot (principal); I10 Essential (primary) hypertension; F41.9 Anxiety disorder, unspecified; F32.A Depression, unspecified; Z87.891 Personal history of nicotine dependence; Z79.899 Other long term (current) drug therapy
CPT/HCPCS: 93005; 93010; A9270; J0690; J1100; J1885; J2250; J2405; J2704; J2795; J3010; J7120